=== PATIENT | male | born 1970 | race Caucasian/White ===

== ENCOUNTER 2016-10-07 13:36 | Inpatient (IN) | payer OTHER ==
[2016-10-07 17:24] VITALS: BMI 20.7
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
[2016-10-07] MEDS ORDERED: ACETAMINOPHEN 325 MG TABLET (FP) PO PRN (19:01)
[2016-10-07] MEDS ORDERED: MENTHOL/PHENOL 1 EACH UD MM PRN (19:01)
[2016-10-07] MEDS ORDERED: MAGNESIUM HYDROX 2400MG/30ML ORAL SUSPENSION 30 ML CUP PO PRN (19:01)
[2016-10-07] MEDS ORDERED: MAGNESIUM CITRATE 300 ML BOTTLE PO PRN (19:01)
[2016-10-07] MEDS ORDERED: P-EPHED 60MG/TRIPROLIDI 2.5MG TABLET PO PRN (19:01)
[2016-10-07] MEDS ORDERED: guaiFENesin/D-METHORPHAN HB 10 ML UNIT-DOSE CUPS PO PRN (19:01)
[2016-10-07] MEDS ORDERED: LOPERAMIDE HCL 2 MG CAPSULE PO PRN (19:01)
[2016-10-07] MEDS ORDERED: MAG HYDROX/AL HYDROX/SIMETH 30 ML UNIT-DOSE CUP PO PRN (19:01)
[2016-10-07] MEDS ORDERED: IBUPROFEN 400 MG TABLET (FP) PO PRN (19:01)
[2016-10-07] MEDS ORDERED: hydrOXYzine PAMOATE 50 MG CAPSULE (FP) PO PRN (19:01)
[2016-10-07] MEDS ORDERED: chlordiazePOXIDE HCL 25 MG CAPSULE PO PRN (19:01)
[2016-10-07] MEDS: chlordiazePOXIDE HCL 25 MG CAPSULE PO SCH (22:06)
[2016-10-07] MEDS: diphenhydrAMINE HCL 50 MG CAPSULE PO PRN (22:07)
[2016-10-07] MEDS: THIAMINE HCL 100 MG TABLET (FP) PO SCH (22:07)
[2016-10-07 23:23] LABS: URINE APPEARANCE CLEAR; URINE BILIRUBIN NEGATIVE (NEGATIVE); URINE BLOOD NEGATIVE (NEGATIVE); URINE COLOR STRAW; URINE GLUCOSE (UA) NEGATIVE (NEGATIVE); URINE KETONE TRACE (NEGATIVE); URINE LEUK ESTERASE NEGATIVE (NEGATIVE); URINE NITRITE NEGATIVE (NEGATIVE); URINE PROTEIN NEGATIVE (NEGATIVE); URINE UROBILINOGEN NEGATIVE E.U./dl (0.2-1.0)
[2016-10-08] MEDS: chlordiazePOXIDE HCL 25 MG CAPSULE PO SCH ×4 (05:14→22:21)
[2016-10-08] MEDS ORDERED: ONDANSETRON *ODT* 4 MG TABLET SL PRN (10:03)
--- NOTE | 2016-10-08 10:03 | PN ---
S CIWA - CIWA Score Nausea/Vomitin-No Nausea/No Vomiting Muscle Tremors: 4-Moderate,w/Arms Extend Anxiety: 3 Agitation: 4-Moderately Restless Paroxysmal Sweats: 3 Orientation: 0-Oriented Tacttile Disturbances: 0-None Auditory Disturbances: 0-None Visual Disturbances: 0-None Headache: 0-None Present CIWA-Ar Total Score: 14 BHS Progress Note (SOAP) Subjective: sweats low appetite interrupted sleep nausea Objective: 10/08/16 10:02 Vital Signs Temperature 97.5 F L 10/08/16 06:51 Pulse Rate 79 10/08/16 06:51 Respiratory Rate 18 10/08/16 06:51 Blood Pressure 110/73 10/08/16 06:51 O2 Sat by Pulse Oximetry (%) Laboratory Tests 10/07/16 23:10 Urine Color Straw Urine Appearance Clear Urine pH 6.0 Ur Specific [place] 1.010 Urine Protein Negative Urine Glucose (UA) Negative Urine Ketones Trace H Urine Blood Negative Urine Nitrite Negative Urine Bilirubin Negative Urine Urobilinogen Negative Ur Leukocyte Esterase Negative labs pending awake/alert ambulating no acute distress Assessment: 10/08/16 10:02 withdrawal sx Plan: continue detox increase fluids labs pending zofran prn
[2016-10-08] MEDS: PRENATAL VITAMINS W/ FOLIC ACID TABLET (FP) PO SCH (10:10)
[2016-10-08 10:27] LABS: MCH 32.3 pg (25.7-33.7); MCHC 32.7 g/dl (32.0-35.9); MEAN CELL VOLUME 98.8 fl (80-96); MEAN PLT VOLUME 7.5 fl (7.5-11.1); PLATELET COUNT 241 K/MM3 (134-434); RDW 13.8 % (11.9-15.9); WHITE BLOOD COUNT 6.3 K/mm3 (4.0-10.0)
[2016-10-08 10:54] LABS: ALBUMIN 4.5 g/dl (3.4-5.0); ANION GAP 10 (8-16); CO2 28 mmol/L (21-32); GLUCOSE,RANDOM 116 mg/dL (74-106); SGOT/AST 54 U/L (15-37); SGPT/ALT 55 U/L (12-78)
[2016-10-08 10:57] LABS: ALK PHOS 67 U/L (45-117); BILIRUBIN,TOTAL 0.4 mg/dL (0.2-1.0); CALCIUM 9.2 mg/dL (8.5-10.1); COCKROFT - GAULT 108.47; CREATININE 0.8 mg/dL (0.7-1.3); TOT PROT 7.7 g/dl (6.4-8.2)
[2016-10-08] MEDS ORDERED: INFLUENZA VACCINE 45 MCG/0.5 ML (MDV 16-17) IM ONE (12:00)
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
[2016-10-08] MEDS: THIAMINE HCL 100 MG TABLET (FP) PO SCH (22:21)
[2016-10-08] MEDS: diphenhydrAMINE HCL 50 MG CAPSULE PO PRN (22:21)
[2016-10-09] MEDS: chlordiazePOXIDE HCL 25 MG CAPSULE PO SCH ×3 (05:13→17:37)
--- NOTE | 2016-10-09 08:27 | EKG ---
Test Reason : Blood Pressure : / mmHG Vent. Rate : 075 BPM Atrial Rate : 075 BPM P-R Int : 162 ms QRS Dur : 092 ms QT Int : 392 ms P-R-T Axes : 085 053 065 degrees QTc Int : 437 ms NORMAL SINUS RHYTHM NORMAL ECG NO PREVIOUS ECGS AVAILABLE Confirmed by SHARIF LAIRD MD ([id number]) on 10/09/2016 8:26:39 AM Referred By: Confirmed By:SHARIF LAIRD MD
[2016-10-09] MEDS: PRENATAL VITAMINS W/ FOLIC ACID TABLET (FP) PO SCH (10:12)
--- NOTE | 2016-10-09 10:29 | PN ---
S CIWA - CIWA Score Nausea/Vomitin Muscle Tremors: 2 Anxiety: 2 Agitation: 2 Paroxysmal Sweats: 3 Orientation: 0-Oriented Tacttile Disturbances: 1-Very Mild Itch/Numbness Auditory Disturbances: 0-None Visual Disturbances: 0-None Headache: 0-None Present CIWA-Ar Total Score: 12 S Progress Note (SOAP) Subjective: interrupted sleep, sweats Objective: 10/09/16 10:27 Vital Signs Temperature 98.2 F 10/09/16 10:20 Pulse Rate 82 10/09/16 10:20 Respiratory Rate 16 10/09/16 10:20 Blood Pressure 96/56 10/09/16 10:20 O2 Sat by Pulse Oximetry (%) Laboratory Tests 10/07/16 10/08/16 10/08/16 23:10 06:00 06:00 WBC 6.3 RBC 4.39 Hgb 14.2 Hct 43.4 MCV 98.8 H MCHC 32.7 RDW 13.8 Plt Count 241 D MPV 7.5 Sodium 139 Potassium 4.6 Chloride 101 Carbon Dioxide 28 Anion Gap 10 BUN 14 Creatinine 0.8 Creat Clearance w eGFR > 60 Random Glucose 116 H Calcium 9.2 Total Bilirubin 0.4 D AST 54 H D ALT 55 D Alkaline Phosphatase 67 D Total Protein 7.7 D Albumin 4.5 D Urine Color Straw Urine Appearance Clear Urine pH 6.0 Ur Specific [place] 1.010 Urine Protein Negative Urine Glucose (UA) Negative Urine Ketones Trace H Urine Blood Negative Urine Nitrite Negative Urine Bilirubin Negative Urine Urobilinogen Negative Ur Leukocyte Esterase Negative RPR Titer 10/08/16 06:00 WBC RBC Hgb Hct MCV MCHC RDW Plt Count MPV Sodium Potassium Chloride Carbon Dioxide Anion Gap BUN Creatinine Creat Clearance w eGFR Random Glucose Calcium Total Bilirubin AST ALT Alkaline Phosphatase Total Protein Albumin Urine Color Urine Appearance Urine pH Ur Specific [place] Urine Protein Urine Glucose (UA) Urine Ketones Urine Blood Urine Nitrite Urine Bilirubin Urine Urobilinogen Ur Leukocyte Esterase RPR Titer Nonreactive pt aox3 in nad , lying in bed Assessment: 10/09/16 10:28 withdrawal sx's Plan: cont. detox increase fluids
[2016-10-09] MEDS: chlordiazePOXIDE 5 MG CAPSULE PO SCH (22:25)
[2016-10-09] MEDS: THIAMINE HCL 100 MG TABLET (FP) PO SCH (22:25)
[2016-10-09] MEDS: diphenhydrAMINE HCL 50 MG CAPSULE PO PRN (22:25)
[2016-10-10] MEDS: chlordiazePOXIDE 5 MG CAPSULE PO SCH ×3 (06:03→17:20)
[2016-10-10] MEDS: PRENATAL VITAMINS W/ FOLIC ACID TABLET (FP) PO SCH (10:12)
--- NOTE | 2016-10-10 10:56 | PN ---
BHS Progress Note (SOAP) Subjective: sweats Objective: 10/10/16 08:45 Vital Signs - 24 hr 10/10/16 10/10/16 10/10/16 09:31 14:20 17:20 Temperature 97.2 F L 97.5 F L 98.2 F Pulse Rate 79 81 80 Respiratory 16 16 18 Rate Blood Pressure 95/70 111/56 108/68 10/10/16 10/11/16 10/11/16 22:05 03:30 06:00 Temperature 97.9 F 97.7 F Pulse Rate 83 79 Respiratory 18 18 18 Rate Blood Pressure 108/67 98/67 awake/alert ambulating no acute distress Assessment: 10/10/16 08:46 withdrawal sx Plan: continue detox d/c in am
[2016-10-10] MEDS: chlordiazePOXIDE HCL 10 MG CAPSULE PO SCH (22:05)
[2016-10-10] MEDS: THIAMINE HCL 100 MG TABLET (FP) PO SCH (22:05)
[2016-10-10] MEDS: diphenhydrAMINE HCL 50 MG CAPSULE PO PRN (22:05)
[2016-10-11] MEDS: diphenhydrAMINE HCL 50 MG CAPSULE PO PRN (00:35)
[2016-10-11] MEDS: chlordiazePOXIDE HCL 10 MG CAPSULE PO SCH (05:50)
[2016-10-11 06:37] VITALS: BP 98/67; PULSE 79; TEMP 97.7
--- NOTE | 2016-10-11 08:20 | PN ---
S Progress Note (SOAP) Subjective: alert,no complaint Objective: 10/11/16 08:19 Vital Signs Temperature 97.7 F 10/11/16 06:00 Pulse Rate 79 10/11/16 06:00 Respiratory Rate 18 10/11/16 06:00 Blood Pressure 98/67 10/11/16 06:00 O2 Sat by Pulse Oximetry (%) Assessment: 10/11/16 08:19 detox completed,no withdrawal symptom Plan: discharge today,follow up with after care program as arrangement
--- NOTE | 2016-10-11 08:26 | DS ---
[facility] Detox Discharge Summary Admission Date: 10/07/16 Discharge Date: 10/11/16 - History Present History: Alcohol Dependence Additional Comments: follow up with after care program as arrangement - Physical Exam Results Vital Signs: Vital Signs Temperature 97.7 F 10/11/16 06:00 Pulse Rate 79 10/11/16 06:00 Respiratory Rate 18 10/11/16 06:00 Blood Pressure 98/67 10/11/16 06:00 O2 Sat by Pulse Oximetry (%) Pertinent Admission Physical Exam Findings: withdrawal symptom - Treatment Hospital Course: Detox Protocol Followed, Detoxed Safely, Responded well, Discharged Condition Good, Rehab Referral Accepted Patient has Accepted [facility] - Medication Discharge Medications: Ambulatory Orders NK [No Known Home Medication] 08/28/15 - Diagnosis (1) Alcohol dependence with uncomplicated withdrawal Current Visit: Yes Status: Acute (2) Weight loss Current Visit: Yes Status: Acute - AMA Did Patient Leave Against Medical Advice: No
[2016-10-11] MEDS: PRENATAL VITAMINS W/ FOLIC ACID TABLET (FP) PO SCH (09:20)
== END 2016-10-11 09:52 | disposition home or self-care (01) | DRG 775 ==
LOC: YASAS 13:36 → Y6N 19:04
PROVIDERS: ADMIT Internal Medicine Addiction Medicine; ATTEND Internal Medicine Addiction Medicine
PROC: HZ2ZZZZ Detoxification Services for Substance Abuse Treatment (ICD-10-PCS; principal; 2016-10-11)
DX: F10.230 Alcohol dependence with withdrawal, uncomplicated (principal); F12.20 Cannabis dependence, uncomplicated; F16.10 Hallucinogen abuse, uncomplicated; R76.11 Nonspecific reaction to tuberculin skin test without active tuberculosis; Z68.20 Body mass index [BMI] 20.0-20.9, adult
CPT/HCPCS: 36415; 71020-TC; 80053; 81003; 85027; 86593; 93005; 93010

== ENCOUNTER 2018-03-20 10:22 | Inpatient (IN) | payer OTHER ==
[2018-03-20 10:36] VITALS: BMI 20.5
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
[2018-03-20] MEDS ORDERED: ACETAMINOPHEN 325 MG TABLET (FP) PO PRN (11:03)
[2018-03-20] MEDS ORDERED: MAG HYDROX/AL HYDROX/SIMETH 30 ML UNIT-DOSE CUP PO PRN (11:03)
[2018-03-20] MEDS ORDERED: chlordiazePOXIDE HCL 25 MG CAPSULE PO PRN (11:03)
[2018-03-20] MEDS ORDERED: LOPERAMIDE HCL 2 MG CAPSULE PO PRN (11:03)
[2018-03-20] MEDS ORDERED: guaiFENesin/D-METHORPHAN HB 10 ML UNIT-DOSE CUPS PO PRN (11:03)
[2018-03-20] MEDS ORDERED: MENTHOL/PHENOL 1 EACH UD MM PRN (11:03)
[2018-03-20] MEDS ORDERED: hydrOXYzine PAMOATE 25 MG CAPSULE (FP) PO PRN (11:03)
[2018-03-20] MEDS ORDERED: IBUPROFEN 400 MG TABLET (FP) PO PRN (11:03)
[2018-03-20] MEDS ORDERED: MAGNESIUM CITRATE 300 ML BOTTLE PO PRN (11:03)
[2018-03-20] MEDS ORDERED: P-EPHED 60MG/TRIPROLIDI 2.5MG TABLET PO PRN (11:03)
[2018-03-20] MEDS ORDERED: MAGNESIUM HYDROX 2400MG/30ML ORAL SUSPENSION 30 ML CUP PO PRN (11:03)
[2018-03-20] MEDS: chlordiazePOXIDE HCL 25 MG CAPSULE PO SCH ×2 (16:44→22:16)
[2018-03-20] MEDS: THIAMINE HCL 100 MG TABLET (FP) PO SCH (22:16)
[2018-03-20] MEDS: MELATONIN 5 MG TABLETS PO PRN (22:17)
[2018-03-21] MEDS: chlordiazePOXIDE HCL 25 MG CAPSULE PO SCH ×4 (05:36→22:45)
[2018-03-21 10:17] LABS: URINE APPEARANCE CLEAR; URINE BILIRUBIN NEGATIVE (<2.0 mg/dL); URINE COLOR STRAW; URINE GLUCOSE (UA) NEGATIVE (NEGATIVE); URINE KETONE NEGATIVE (NEGATIVE); URINE LEUK ESTERASE NEGATIVE (NEGATIVE); URINE NITRITE NEGATIVE (NEGATIVE); URINE PROTEIN NEGATIVE (NEGATIVE); URINE UROBILINOGEN NEGATIVE mg/dL (0.2-1.0)
[2018-03-21 10:18] LABS: HEMATOCRIT 45.5 % (35.4-49); HEMOGLOBIN 14.9 GM/dL (11.7-16.9); MCH 31.6 pg (25.7-33.7); MCHC 32.8 g/dl (32.0-35.9); MEAN CELL VOLUME 96.2 fl (80-96); MEAN PLT VOLUME 7.8 fl (7.5-11.1); PLATELET COUNT 221 K/MM3 (134-434); RBC 4.72 M/mm3 (4.00-5.60); WHITE BLOOD COUNT 6.8 K/mm3 (4.0-10.0)
[2018-03-21] MEDS: PRENATAL VITAMINS W/ FOLIC ACID TABLET (FP) PO SCH (10:25)
[2018-03-21 11:04] LABS: ALBUMIN 3.8 g/dl (3.4-5.0); ALK PHOS 57 U/L (45-117); ANION GAP 7 MMOL/L (8-16); BILIRUBIN,TOTAL 0.7 mg/dL (0.2-1); BLOOD UREA NITROGEN 11 mg/dL (7-18); CALCIUM 8.8 mg/dL (8.5-10.1); CHLORIDE 102 mmol/L (98-107); CO2 29 mmol/L (21-32); CREATININE 0.9 mg/dL (0.55-1.3); GLUCOSE,RANDOM 76 mg/dL (74-106); POTASSIUM 4.3 mmol/L (3.5-5.1); SGOT/AST 44 U/L (15-37); SGPT/ALT 44 U/L (13-61); SODIUM 137 mmol/L (136-145); TOT PROT 7.1 g/dl (6.4-8.2)
[2018-03-21] MEDS ORDERED: FLU VACCINE QUAD 60 MCG/0.5 ML (MDV 18-19) IM ONE (12:00)
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
--- NOTE | 2018-03-21 15:43 | PN ---
[facility] CIWA - CIWA Score Nausea/Vomitin-Mild Nausea/No Vomiting Muscle Tremors: 2 Anxiety: 2 Agitation: 3 Paroxysmal Sweats: 4-Forehead w/Sweat Beads Orientation: 0-Oriented Tacttile Disturbances: 0-None Auditory Disturbances: 0-None Visual Disturbances: 0-None Headache: 0-None Present CIWA-Ar Total Score: 12 S Progress Note (SOAP) Subjective: sweats, chills, interrupted sleep Objective: 03/21/18 15:42 Vital Signs Temperature 96.8 F L 03/21/18 13:25 Pulse Rate 86 03/21/18 13:25 Respiratory Rate 18 03/21/18 13:25 Blood Pressure 105/71 03/21/18 13:25 O2 Sat by Pulse Oximetry (%) Laboratory Last Values WBC 6.8 K/mm3 (4.0-10.0) 03/21/18 06:00 RBC 4.72 M/mm3 (4.00-5.60) 03/21/18 06:00 Hgb 14.9 GM/dL (11.7-16.9) 03/21/18 06:00 Hct 45.5 % (35.4-49) 03/21/18 06:00 MCV 96.2 fl (80-96) H 03/21/18 06:00 MCH 31.6 pg (25.7-33.7) 03/21/18 06:00 MCHC 32.8 g/dl (32.0-35.9) 03/21/18 06:00 RDW 13.0 % (11.9-15.9) 03/21/18 06:00 Plt Count 221 K/MM3 (134-434) 03/21/18 06:00 MPV 7.8 fl (7.5-11.1) D 03/21/18 06:00 Sodium 137 mmol/L (136-145) 03/21/18 06:00 Potassium 4.3 mmol/L (3.5-5.1) 03/21/18 06:00 Chloride 102 mmol/L (98-107) 03/21/18 06:00 Carbon Dioxide 29 mmol/L (21-32) 03/21/18 06:00 Anion Gap 7 MMOL/L (8-16) L 03/21/18 06:00 BUN 11 mg/dL (7-18) 03/21/18 06:00 Creatinine 0.9 mg/dL (0.55-1.3) 03/21/18 06:00 Creat Clearance w eGFR > 60 (>60) 03/21/18 06:00 Random Glucose 76 mg/dL (74-106) 03/21/18 06:00 Calcium 8.8 mg/dL (8.5-10.1) 03/21/18 06:00 Total Bilirubin 0.7 mg/dL (0.2-1) 03/21/18 06:00 AST 44 U/L (15-37) H 03/21/18 06:00 ALT 44 U/L (13-61) 03/21/18 06:00 Alkaline Phosphatase 57 U/L (45-117) 03/21/18 06:00 Total Protein 7.1 g/dl (6.4-8.2) 03/21/18 06:00 Albumin 3.8 g/dl (3.4-5.0) 03/21/18 06:00 Urine Color Straw 03/21/18 08:30 Urine Appearance Clear 03/21/18 08:30 Urine pH 6.0 (5.0-8.0) 03/21/18 08:30 Ur Specific [place] 1.008 (1.010-1.035) L 03/21/18 08:30 Urine Protein Negative (NEGATIVE) 03/21/18 08:30 Urine Glucose (UA) Negative (NEGATIVE) 03/21/18 08:30 Urine Ketones Negative (NEGATIVE) 03/21/18 08:30 Urine Blood Negative (NEGATIVE) 03/21/18 08:30 Urine Nitrite Negative (NEGATIVE) 03/21/18 08:30 Urine Bilirubin Negative (<2.0 mg/dL) 03/21/18 08:30 Urine Urobilinogen Negative mg/dL (0.2-1.0) 03/21/18 08:30 Ur Leukocyte Esterase Negative (NEGATIVE) 03/21/18 08:30 RPR Titer Nonreactive (NONREACTIVE) 03/21/18 06:00 HIV 1&2 Antibody Screen Negative 03/20/18 11:25 HIV P24 Antigen Negative 03/20/18 11:25 labs reviewed d/c acetaminophen Aox3 no distress full ROM ambulating in the unit Assessment: 03/21/18 15:43 withdrawal sx Plan: increase fluids continue detox continue to monitor
--- NOTE | 2018-03-21 17:31 | EKG ---
Test Reason : Blood Pressure : / mmHG Vent. Rate : 068 BPM Atrial Rate : 068 BPM P-R Int : 160 ms QRS Dur : 096 ms QT Int : 392 ms P-R-T Axes : 078 041 062 degrees QTc Int : 416 ms NORMAL SINUS RHYTHM NORMAL ECG WHEN COMPARED WITH ECG OF 06-AUG-2017 19:16, NO SIGNIFICANT CHANGE WAS FOUND BASELINE ARTIFACT Confirmed by JAYSON SHINE, HIRA ([id number]) on 03/21/2018 5:31:12 PM Referred By: Confirmed By:HIRA TYLER MD
[2018-03-21] MEDS: THIAMINE HCL 100 MG TABLET (FP) PO SCH (22:45)
[2018-03-21] MEDS: MELATONIN 5 MG TABLETS PO PRN (22:46)
[2018-03-22] MEDS: chlordiazePOXIDE HCL 25 MG CAPSULE PO SCH ×2 (05:29→10:16)
[2018-03-22] MEDS: PRENATAL VITAMINS W/ FOLIC ACID TABLET (FP) PO SCH (10:16)
--- NOTE | 2018-03-22 13:21 | PN ---
[facility] CIWA - CIWA Score Nausea/Vomitin-Mild Nausea/No Vomiting Muscle Tremors: 3 Anxiety: 2 Agitation: 3 Paroxysmal Sweats: 2 Orientation: 0-Oriented Tacttile Disturbances: 2-Mild Itch/Numbness/Burn Auditory Disturbances: 0-None Visual Disturbances: 0-None Headache: 1-Very Mild CIWA-Ar Total Score: 14 S Progress Note (SOAP) Subjective: Tremors, interrupted sleep Objective: 03/22/18 13:20 Vital Signs - 8 hr 03/22/18 03/22/18 06:45 09:15 Temperature 97.8 F 96.8 F L Pulse Rate 82 93 H Respiratory 18 20 Rate Blood Pressure 99/75 98/71 Laboratory Last Values WBC 6.8 K/mm3 (4.0-10.0) 03/21/18 06:00 RBC 4.72 M/mm3 (4.00-5.60) 03/21/18 06:00 Hgb 14.9 GM/dL (11.7-16.9) 03/21/18 06:00 Hct 45.5 % (35.4-49) 03/21/18 06:00 MCV 96.2 fl (80-96) H 03/21/18 06:00 MCH 31.6 pg (25.7-33.7) 03/21/18 06:00 MCHC 32.8 g/dl (32.0-35.9) 03/21/18 06:00 RDW 13.0 % (11.9-15.9) 03/21/18 06:00 Plt Count 221 K/MM3 (134-434) 03/21/18 06:00 MPV 7.8 fl (7.5-11.1) D 03/21/18 06:00 Sodium 137 mmol/L (136-145) 03/21/18 06:00 Potassium 4.3 mmol/L (3.5-5.1) 03/21/18 06:00 Chloride 102 mmol/L (98-107) 03/21/18 06:00 Carbon Dioxide 29 mmol/L (21-32) 03/21/18 06:00 Anion Gap 7 MMOL/L (8-16) L 03/21/18 06:00 BUN 11 mg/dL (7-18) 03/21/18 06:00 Creatinine 0.9 mg/dL (0.55-1.3) 03/21/18 06:00 Creat Clearance w eGFR > 60 (>60) 03/21/18 06:00 Random Glucose 76 mg/dL (74-106) 03/21/18 06:00 Calcium 8.8 mg/dL (8.5-10.1) 03/21/18 06:00 Total Bilirubin 0.7 mg/dL (0.2-1) 03/21/18 06:00 AST 44 U/L (15-37) H 03/21/18 06:00 ALT 44 U/L (13-61) 03/21/18 06:00 Alkaline Phosphatase 57 U/L (45-117) 03/21/18 06:00 Total Protein 7.1 g/dl (6.4-8.2) 03/21/18 06:00 Albumin 3.8 g/dl (3.4-5.0) 03/21/18 06:00 Urine Color Straw 03/21/18 08:30 Urine Appearance Clear 03/21/18 08:30 Urine pH 6.0 (5.0-8.0) 03/21/18 08:30 Ur Specific [place] 1.008 (1.010-1.035) L 03/21/18 08:30 Urine Protein Negative (NEGATIVE) 03/21/18 08:30 Urine Glucose (UA) Negative (NEGATIVE) 03/21/18 08:30 Urine Ketones Negative (NEGATIVE) 03/21/18 08:30 Urine Blood Negative (NEGATIVE) 03/21/18 08:30 Urine Nitrite Negative (NEGATIVE) 03/21/18 08:30 Urine Bilirubin Negative (<2.0 mg/dL) 03/21/18 08:30 Urine Urobilinogen Negative mg/dL (0.2-1.0) 03/21/18 08:30 Ur Leukocyte Esterase Negative (NEGATIVE) 03/21/18 08:30 RPR Titer Nonreactive (NONREACTIVE) 03/21/18 06:00 HIV 1&2 Antibody Screen Negative 03/20/18 11:25 HIV P24 Antigen Negative 03/20/18 11:25 Labs noted Assessment: 03/22/18 13:20 Withdrawal sx Plan: Continue detox
[2018-03-22] MEDS: chlordiazePOXIDE 5 MG CAPSULE PO SCH ×2 (17:46→22:44)
[2018-03-22] MEDS: THIAMINE HCL 100 MG TABLET (FP) PO SCH (22:44)
[2018-03-22] MEDS: MELATONIN 5 MG TABLETS PO PRN (22:45)
[2018-03-23] MEDS: chlordiazePOXIDE 5 MG CAPSULE PO SCH ×2 (05:45→10:21)
[2018-03-23] MEDS: PRENATAL VITAMINS W/ FOLIC ACID TABLET (FP) PO SCH (10:21)
--- NOTE | 2018-03-23 17:03 | PN ---
[facility] Progress Note (SOAP) Subjective: shakes' interrupted sleep sweats Objective: 03/23/18 17:02 A & O x 3 Not in acute distress Vital Signs Temperature 97.2 F L 03/23/18 13:20 Pulse Rate 83 03/23/18 13:20 Respiratory Rate 18 03/23/18 13:20 Blood Pressure 102/69 03/23/18 13:20 O2 Sat by Pulse Oximetry (%) Assessment: 03/23/18 17:02 withdrawal sx Plan: continue detox
[2018-03-23] MEDS: chlordiazePOXIDE HCL 10 MG CAPSULE PO SCH ×2 (17:05→22:13)
[2018-03-23] MEDS: THIAMINE HCL 100 MG TABLET (FP) PO SCH (22:13)
[2018-03-23] MEDS: MELATONIN 5 MG TABLETS PO PRN (22:14)
[2018-03-24] MEDS: chlordiazePOXIDE HCL 10 MG CAPSULE PO SCH (05:25)
[2018-03-24 09:27] VITALS: BP 110/79; PULSE 87; TEMP 96.8
[2018-03-24] MEDS: PRENATAL VITAMINS W/ FOLIC ACID TABLET (FP) PO SCH (09:40)
--- NOTE | 2018-03-24 11:20 | DS ---
[facility] Detox Discharge Summary Admission Date: 03/20/18 Discharge Date: 03/24/18 - History Present History: Alcohol Dependence Pertinent Past History: PPD Positive - Physical Exam Results Vital Signs: Vital Signs Temperature 96.8 F L 03/24/18 09:26 Pulse Rate 87 03/24/18 09:26 Respiratory Rate 18 03/24/18 09:26 Blood Pressure 110/79 03/24/18 09:26 O2 Sat by Pulse Oximetry (%) Pertinent Admission Physical Exam Findings: Withdrawal sxs Laboratory Tests 03/20/18 03/21/18 03/21/18 11:25 06:00 06:00 WBC 6.8 RBC 4.72 Hgb 14.9 Hct 45.5 MCV 96.2 H MCH 31.6 MCHC 32.8 RDW 13.0 Plt Count 221 MPV 7.8 D Sodium 137 Potassium 4.3 Chloride 102 Carbon Dioxide 29 Anion Gap 7 L BUN 11 Creatinine 0.9 Creat Clearance w eGFR > 60 Random Glucose 76 Calcium 8.8 Total Bilirubin 0.7 AST 44 H ALT 44 Alkaline Phosphatase 57 Total Protein 7.1 Albumin 3.8 Urine Color Urine Appearance Urine pH Ur Specific [place] Urine Protein Urine Glucose (UA) Urine Ketones Urine Blood Urine Nitrite Urine Bilirubin Urine Urobilinogen Ur Leukocyte Esterase RPR Titer HIV 1&2 Antibody Screen Negative HIV P24 Antigen Negative 03/21/18 03/21/18 06:00 08:30 WBC RBC Hgb Hct MCV MCH MCHC RDW Plt Count MPV Sodium Potassium Chloride Carbon Dioxide Anion Gap BUN Creatinine Creat Clearance w eGFR Random Glucose Calcium Total Bilirubin AST ALT Alkaline Phosphatase Total Protein Albumin Urine Color Straw Urine Appearance Clear Urine pH 6.0 Ur Specific [place] 1.008 L Urine Protein Negative Urine Glucose (UA) Negative Urine Ketones Negative Urine Blood Negative Urine Nitrite Negative Urine Bilirubin Negative Urine Urobilinogen Negative Ur Leukocyte Esterase Negative RPR Titer Nonreactive HIV 1&2 Antibody Screen HIV P24 Antigen Labs reviewed - Treatment Hospital Course: Detox Protocol Followed, Detoxed Safely, Responded well, Discharged Condition Good - Medication Discharge Medications: Ambulatory Orders NK [No Known Home Medication] 08/28/15 - Diagnosis (1) Depression (emotion) Current Visit: Yes Status: Chronic (2) Alcohol dependence with uncomplicated withdrawal Current Visit: Yes Status: Acute (3) Insomnia secondary to depression with anxiety Current Visit: Yes Status: Acute (4) Positive PPD Current Visit: Yes Status: Chronic - AMA Did Patient Leave Against Medical Advice: No (F/U with your PCP within 1-2 weeks )
== END 2018-03-24 10:00 | disposition home or self-care (01) | DRG 774 ==
LOC: YASAS 10:22 → Y3N 10:57
PROC: HZ2ZZZZ Detoxification Services for Substance Abuse Treatment (ICD-10-PCS; principal; 2018-03-20)
DX: F10.230 Alcohol dependence with withdrawal, uncomplicated (principal); F14.20 Cocaine dependence, uncomplicated; F12.20 Cannabis dependence, uncomplicated; F32.9 Major depressive disorder, single episode, unspecified; R76.11 Nonspecific reaction to tuberculin skin test without active tuberculosis; Z87.891 Personal history of nicotine dependence; Z88.0 Allergy status to penicillin; Z87.898 Personal history of other specified conditions; Z91.5 Personal history of self-harm
CPT/HCPCS: 36415; 71045-TC-FY; 80053; 81003; 85027; 86593; 87389; 90688; 93005; 93010; G0008

== ENCOUNTER 2018-06-12 11:30 | Inpatient (IN) | payer OTHER ==
[2018-06-12 12:00] VITALS: BMI 22.5
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
[2018-06-12] MEDS ORDERED: P-EPHED 60MG/TRIPROLIDI 2.5MG TABLET PO PRN (13:08)
[2018-06-12] MEDS ORDERED: IBUPROFEN 400 MG TABLET (FP) PO PRN (13:08)
[2018-06-12] MEDS ORDERED: MAG HYDROX/AL HYDROX/SIMETH 30 ML UNIT-DOSE CUP PO PRN (13:08)
[2018-06-12] MEDS ORDERED: MENTHOL/PHENOL 1 EACH UD MM PRN (13:08)
[2018-06-12] MEDS ORDERED: LOPERAMIDE HCL 2 MG CAPSULE PO PRN (13:08)
[2018-06-12] MEDS ORDERED: ACETAMINOPHEN 325 MG TABLET (FP) PO PRN (13:08)
[2018-06-12] MEDS ORDERED: MAGNESIUM CITRATE 300 ML BOTTLE PO PRN (13:08)
[2018-06-12] MEDS ORDERED: hydrOXYzine PAMOATE 25 MG CAPSULE (FP) PO PRN (13:08)
[2018-06-12] MEDS ORDERED: guaiFENesin/D-METHORPHAN HB 10 ML UNIT-DOSE CUPS PO PRN (13:08)
[2018-06-12] MEDS ORDERED: MAGNESIUM HYDROX 2400MG/30ML ORAL SUSPENSION 30 ML CUP PO PRN (13:08)
[2018-06-12] MEDS ORDERED: chlordiazePOXIDE HCL 25 MG CAPSULE PO PRN (13:08)
[2018-06-12] MEDS: chlordiazePOXIDE HCL 25 MG CAPSULE PO SCH ×2 (17:48→22:10)
--- NOTE | 2018-06-12 18:58 | EKG ---
Test Reason : Blood Pressure : / mmHG Vent. Rate : 082 BPM Atrial Rate : 082 BPM P-R Int : 152 ms QRS Dur : 090 ms QT Int : 360 ms P-R-T Axes : 083 029 050 degrees QTc Int : 420 ms NORMAL SINUS RHYTHM NORMAL ECG WHEN COMPARED WITH ECG OF 20-MAR-2018 11:56, NO SIGNIFICANT CHANGE WAS FOUND Confirmed by MIGUELITO GERARDO MD ([id number]) on 06/12/2018 6:58:01 PM Referred By: Confirmed By:MIGUELITO GERARDO MD
[2018-06-12] MEDS: THIAMINE HCL 100 MG TABLET (FP) PO SCH (22:10)
[2018-06-12] MEDS: MELATONIN 5 MG TABLETS PO PRN (22:11)
[2018-06-13] MEDS: chlordiazePOXIDE HCL 25 MG CAPSULE PO SCH ×4 (05:12→22:25)
--- NOTE | 2018-06-13 10:24 | PN ---
[facility] CIWA - CIWA Score Nausea/Vomitin-Mild Nausea/No Vomiting Muscle Tremors: 3 Anxiety: 3 Agitation: 3 Paroxysmal Sweats: 2 Orientation: 0-Oriented Tacttile Disturbances: 0-None Auditory Disturbances: 0-None Visual Disturbances: 0-None Headache: 0-None Present CIWA-Ar Total Score: 12 S Progress Note (SOAP) Subjective: PATIENT C/O SHAKES, RESTLESSNESS, CHILLS/SWEATING AND ANXIETY Objective: 06/13/18 10:22 Vital Signs Temperature 97.7 F 06/13/18 09:27 Pulse Rate 90 06/13/18 09:27 Respiratory Rate 18 06/13/18 09:27 Blood Pressure 91/55 L 06/13/18 09:27 O2 Sat by Pulse Oximetry (%) PE: SKIN WARM, +FACIAL MOISTURE ALERT AND ORIENTED X 3 EXT FULL ROM, + TREMORS AMB AD RANDY +RESTLESSNESS Assessment: 06/13/18 10:23 WITHDRAWAL SX Plan: CONTINUE DETOX ENCOURAGE ORAL FLUIDS CONTINUE TO MONITOR LABS PENDING
[2018-06-13] MEDS: PRENATAL VITAMINS W/ FOLIC ACID TABLET (FP) PO SCH (10:27)
[2018-06-13 11:15] LABS: HEMATOCRIT 45.1 % (35.4-49); HEMOGLOBIN 14.6 GM/dL (11.7-16.9); MCH 31.2 pg (25.7-33.7); MCHC 32.3 g/dl (32.0-35.9); MEAN CELL VOLUME 96.7 fl (80-96); MEAN PLT VOLUME 7.7 fl (7.5-11.1); PLATELET COUNT 204 K/MM3 (134-434); RBC 4.67 M/mm3 (4.00-5.60); WHITE BLOOD COUNT 5.4 K/mm3 (4.0-10.0)
[2018-06-13 11:43] LABS: ALBUMIN 4.1 g/dl (3.4-5.0); ALK PHOS 61 U/L (45-117); ANION GAP 7 MMOL/L (8-16); BILIRUBIN,TOTAL 0.6 mg/dL (0.2-1); BLOOD UREA NITROGEN 10 mg/dL (7-18); CALCIUM 8.9 mg/dL (8.5-10.1); CHLORIDE 101 mmol/L (98-107); CO2 30 mmol/L (21-32); CREATININE 0.9 mg/dL (0.55-1.3); GLUCOSE,RANDOM 114 mg/dL (74-106); POTASSIUM 4.7 mmol/L (3.5-5.1); SGOT/AST 35 U/L (15-37); SGPT/ALT 34 U/L (13-61); SODIUM 138 mmol/L (136-145); TOT PROT 7.3 g/dl (6.4-8.2)
[2018-06-13] MEDS: THIAMINE HCL 100 MG TABLET (FP) PO SCH (22:25)
[2018-06-13] MEDS: MELATONIN 5 MG TABLETS PO PRN (22:26)
[2018-06-14] MEDS: chlordiazePOXIDE HCL 25 MG CAPSULE PO SCH ×2 (05:43→10:20)
[2018-06-14] MEDS: PRENATAL VITAMINS W/ FOLIC ACID TABLET (FP) PO SCH (10:19)
--- NOTE | 2018-06-14 10:19 | PN ---
[facility] CIWA - CIWA Score Nausea/Vomitin-No Nausea/No Vomiting Muscle Tremors: 3 Anxiety: 2 Agitation: 2 Paroxysmal Sweats: 1-Minimal Palms Moist Orientation: 0-Oriented Tacttile Disturbances: 0-None Auditory Disturbances: 0-None Visual Disturbances: 0-None Headache: 2-Mild CIWA-Ar Total Score: 10 S Progress Note (SOAP) Subjective: mild tremor and sweat otherwise feeling better Objective: 06/14/18 10:22 Vital Signs Temperature 97.7 F 06/14/18 09:28 Pulse Rate 69 06/14/18 09:28 Respiratory Rate 18 06/14/18 09:28 Blood Pressure 100/54 L 06/14/18 09:28 O2 Sat by Pulse Oximetry (%) Laboratory Last Values WBC 5.4 K/mm3 (4.0-10.0) 06/13/18 05:45 RBC 4.67 M/mm3 (4.00-5.60) 06/13/18 05:45 Hgb 14.6 GM/dL (11.7-16.9) 06/13/18 05:45 Hct 45.1 % (35.4-49) 06/13/18 05:45 MCV 96.7 fl (80-96) H 06/13/18 05:45 MCH 31.2 pg (25.7-33.7) 06/13/18 05:45 MCHC 32.3 g/dl (32.0-35.9) 06/13/18 05:45 RDW 14.0 % (11.9-15.9) 06/13/18 05:45 Plt Count 204 K/MM3 (134-434) 06/13/18 05:45 MPV 7.7 fl (7.5-11.1) 06/13/18 05:45 Sodium 138 mmol/L (136-145) 06/13/18 05:45 Potassium 4.7 mmol/L (3.5-5.1) 06/13/18 05:45 Chloride 101 mmol/L (98-107) 06/13/18 05:45 Carbon Dioxide 30 mmol/L (21-32) 06/13/18 05:45 Anion Gap 7 MMOL/L (8-16) L 06/13/18 05:45 BUN 10 mg/dL (7-18) 06/13/18 05:45 Creatinine 0.9 mg/dL (0.55-1.3) 06/13/18 05:45 Creat Clearance w eGFR > 60 (>60) 06/13/18 05:45 Random Glucose 114 mg/dL (74-106) H 06/13/18 05:45 Calcium 8.9 mg/dL (8.5-10.1) 06/13/18 05:45 Total Bilirubin 0.6 mg/dL (0.2-1) 06/13/18 05:45 AST 35 U/L (15-37) 06/13/18 05:45 ALT 34 U/L (13-61) 06/13/18 05:45 Alkaline Phosphatase 61 U/L (45-117) 06/13/18 05:45 Total Protein 7.3 g/dl (6.4-8.2) 06/13/18 05:45 Albumin 4.1 g/dl (3.4-5.0) 06/13/18 05:45 RPR Titer Nonreactive (NONREACTIVE) 06/13/18 05:45 lab noted Assessment: 06/14/18 10:23 withdrawal sx Plan: continue detox
[2018-06-14] MEDS: chlordiazePOXIDE 5 MG CAPSULE PO SCH ×2 (16:59→22:04)
[2018-06-14] MEDS: THIAMINE HCL 100 MG TABLET (FP) PO SCH (22:04)
[2018-06-14] MEDS: MELATONIN 5 MG TABLETS PO PRN (22:05)
[2018-06-15] MEDS: chlordiazePOXIDE 5 MG CAPSULE PO SCH ×2 (05:52→10:19)
[2018-06-15] MEDS: PRENATAL VITAMINS W/ FOLIC ACID TABLET (FP) PO SCH (10:19)
--- NOTE | 2018-06-15 10:22 | PN ---
[facility] Progress Note (SOAP) Subjective: feeling much better little sweats Objective: 06/15/18 10:22 Vital Signs Temperature 97.7 F 06/15/18 09:27 Pulse Rate 82 06/15/18 09:27 Respiratory Rate 18 06/15/18 09:27 Blood Pressure 108/78 06/15/18 09:27 O2 Sat by Pulse Oximetry (%) aaox3 ambulating no acute distress Assessment: 06/15/18 10:22 withdrawal sx Plan: continue detox increase fluids d/c in am
[2018-06-15 13:40] VITALS: BP 90/64; PULSE 90; TEMP 98.2
--- NOTE | 2018-06-15 15:44 | PN ---
[facility] Progress Note Note: pt is showing no s/s of withdrawal and is being d/c today.
--- NOTE | 2018-06-15 15:47 | DS ---
[facility] Detox Discharge Summary Admission Date: 06/12/18 Discharge Date: 06/15/18 - History Present History: Alcohol Dependence, Cannabis Dependence, Cocaine Dependence, Pcp Dependence - Physical Exam Results Vital Signs: Vital Signs Temperature 98.2 F 06/15/18 13:39 Pulse Rate 90 06/15/18 13:39 Respiratory Rate 14 06/15/18 13:39 Blood Pressure 90/64 06/15/18 13:39 O2 Sat by Pulse Oximetry (%) - Treatment Hospital Course: Detox Protocol Followed, Detoxed Safely, Responded well, Discharged Condition Good, Rehab Referral Accepted - Medication Discharge Medications: Ambulatory Orders NK [No Known Home Medication] 08/28/15 - Diagnosis (1) Alcohol dependence with uncomplicated withdrawal Current Visit: Yes Status: Chronic (2) Cannabis dependence, uncomplicated Current Visit: Yes Status: Chronic (3) Marijuana dependence Current Visit: Yes Status: Chronic (4) Anxious mood Current Visit: No Status: Acute (5) Drug-induced mood disorder Current Visit: No Status: Acute (6) Insomnia secondary to depression with anxiety Current Visit: No Status: Acute (7) Pneumothorax on left Current Visit: No Status: Acute (8) Cocaine dependence Current Visit: No Status: Chronic Qualifiers: Substance use status: uncomplicated Qualified Code(s): F14.20 - Cocaine dependence, uncomplicated (9) Depression (emotion) Current Visit: No Status: Chronic (10) Drug-induced mood disorder Current Visit: No Status: Chronic (11) Heart murmur Current Visit: No Status: Chronic (12) Insomnia Current Visit: No Status: Chronic (13) Positive PPD Current Visit: No Status: Chronic (14) Weight loss Current Visit: No Status: Chronic
[2018-06-15] MEDS ORDERED: chlordiazePOXIDE HCL 10 MG CAPSULE PO SCH (17:00)
== END 2018-06-15 15:52 | disposition home or self-care (01) | DRG 774 ==
LOC: YASAS 11:30 → Y6N 13:23
PROC: HZ2ZZZZ Detoxification Services for Substance Abuse Treatment (ICD-10-PCS; principal; 2018-06-12)
DX: F10.230 Alcohol dependence with withdrawal, uncomplicated (principal); F14.20 Cocaine dependence, uncomplicated; F12.20 Cannabis dependence, uncomplicated; F41.9 Anxiety disorder, unspecified; F19.24 Other psychoactive substance dependence with psychoactive substance-induced mood disorder; F32.9 Major depressive disorder, single episode, unspecified; G47.00 Insomnia, unspecified; R01.1 Cardiac murmur, unspecified; R76.11 Nonspecific reaction to tuberculin skin test without active tuberculosis; Z87.891 Personal history of nicotine dependence; Z88.0 Allergy status to penicillin; Z91.5 Personal history of self-harm
CPT/HCPCS: 36415; 80053; 85027; 86593; 93005; 93010

== ENCOUNTER 2018-10-05 13:28 | Inpatient (IN) | payer BC ==
[2018-10-05 18:58] VITALS: BMI 21.2
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
[2018-10-05] MEDS ORDERED: MENTHOL/PHENOL 1 EACH UD MM PRN (20:46)
[2018-10-05] MEDS ORDERED: MAG HYDROX/AL HYDROX/SIMETH 30 ML UNIT-DOSE CUP PO PRN (20:46)
[2018-10-05] MEDS ORDERED: BISMUTH SUBSALICYLATE 524 MG/30 ML UD PO PRN (20:46)
[2018-10-05] MEDS ORDERED: ACETAMINOPHEN 325 MG TABLET (FP) PO PRN ×2 (20:46)
[2018-10-05] MEDS ORDERED: chlordiazePOXIDE HCL 25 MG CAPSULE PO PRN (20:46)
[2018-10-05] MEDS ORDERED: IBUPROFEN 400 MG TABLET (FP) PO PRN (20:46)
[2018-10-05] MEDS ORDERED: hydrOXYzine PAMOATE 25 MG CAPSULE (FP) PO PRN (20:46)
[2018-10-05] MEDS ORDERED: MAGNESIUM CITRATE 300 ML BOTTLE PO PRN (20:46)
[2018-10-05] MEDS ORDERED: METHOCARBAMOL 500 MG TABLET PO PRN (20:46)
[2018-10-05] MEDS ORDERED: MAGNESIUM HYDROX 2400MG/30ML ORAL SUSPENSION 30 ML CUP PO PRN (20:46)
[2018-10-05] MEDS: THIAMINE HCL 100 MG TABLET (FP) PO SCH (21:52)
[2018-10-05] MEDS: MELATONIN 5 MG TABLETS PO PRN (21:54)
[2018-10-05] MEDS: chlordiazePOXIDE HCL 25 MG CAPSULE PO SCH (22:00)
[2018-10-06] MEDS: chlordiazePOXIDE HCL 25 MG CAPSULE PO SCH ×4 (05:21→22:06)
[2018-10-06 10:05] LABS: HEMOGLOBIN 14.1 GM/dL (11.7-16.9); MCH 32.1 pg (25.7-33.7); MCHC 33.5 g/dl (32.0-35.9); MEAN CELL VOLUME 95.9 fl (80-96); MEAN PLT VOLUME 7.2 fl (7.5-11.1); PLATELET COUNT 201 K/MM3 (134-434); RBC 4.38 M/mm3 (4.00-5.60); RDW 14.5 % (11.9-15.9); WHITE BLOOD COUNT 6.4 K/mm3 (4.0-10.0)
[2018-10-06 10:16] LABS: ALBUMIN 3.6 g/dl (3.4-5.0); ALK PHOS 60 U/L (45-117); ANION GAP 6 MMOL/L (8-16); BILIRUBIN,TOTAL 0.8 mg/dL (0.2-1); BLOOD UREA NITROGEN 9 mg/dL (7-18); CALCIUM 8.9 mg/dL (8.5-10.1); CHLORIDE 104 mmol/L (98-107); CO2 29 mmol/L (21-32); CREATININE 0.9 mg/dL (0.55-1.3); GLUCOSE,RANDOM 91 mg/dL (74-106); POTASSIUM 4.3 mmol/L (3.5-5.1); SGOT/AST 44 U/L (15-37); SGPT/ALT 37 U/L (13-61); SODIUM 140 mmol/L (136-145); TOT PROT 6.3 g/dl (6.4-8.2)
[2018-10-06] MEDS: PRENATAL VITAMINS W/ FOLIC ACID TABLET (FP) PO SCH (10:31)
--- NOTE | 2018-10-06 12:39 | EKG ---
Test Reason : Blood Pressure : / mmHG Vent. Rate : 073 BPM Atrial Rate : 073 BPM P-R Int : 160 ms QRS Dur : 096 ms QT Int : 392 ms P-R-T Axes : 077 039 059 degrees QTc Int : 431 ms NORMAL SINUS RHYTHM NORMAL ECG Confirmed by MD BRAYAN, EVE ([id number]) on 10/06/2018 12:39:22 PM Referred By: OPAL GRAY Confirmed By:EVE SCHMIDT MD
--- NOTE | 2018-10-06 15:11 | PN ---
S CIWA - CIWA Score Nausea/Vomitin Muscle Tremors: 4-Moderate,w/Arms Extend Anxiety: 3 Agitation: 1-Slight > Activity Paroxysmal Sweats: No Perspiration Orientation: 0-Oriented Tacttile Disturbances: 2-Mild Itch/Numbness/Burn Auditory Disturbances: 0-None Visual Disturbances: 0-None Headache: 3-Moderate CIWA-Ar Total Score: 16 BHS Progress Note (SOAP) Subjective: Anxious, Tremors, Nausea, H/A. Objective: PATIENT A & O X 3, OBSERVED AMBULATING ON UNIT UNASSISTED. IN NO ACUTE DISTRESS. 10/06/18 15:10 Vital Signs Temperature 97.4 F L 10/06/18 13:07 Pulse Rate 89 10/06/18 13:07 Respiratory Rate 18 10/06/18 13:07 Blood Pressure 103/71 10/06/18 13:07 O2 Sat by Pulse Oximetry (%) Laboratory Tests 10/06/18 10/06/18 10/06/18 07:00 07:00 07:00 WBC 6.4 RBC 4.38 Hgb 14.1 Hct 42.0 MCV 95.9 MCH 32.1 MCHC 33.5 RDW 14.5 Plt Count 201 MPV 7.2 L Sodium 140 Potassium 4.3 Chloride 104 Carbon Dioxide 29 Anion Gap 6 L BUN 9 Creatinine 0.9 Creat Clearance w eGFR 90.45 Random Glucose 91 Calcium 8.9 Total Bilirubin 0.8 AST 44 H ALT 37 Alkaline Phosphatase 60 Total Protein 6.3 L Albumin 3.6 RPR Titer Nonreactive LABS NOTED. Assessment: 10/06/18 15:10 WITHDRAWAL SYMPTOMS. Plan: CONTINUE DETOX. INCREASE DAILY PO FLUID / WATER INTAKE.
[2018-10-06] MEDS: THIAMINE HCL 100 MG TABLET (FP) PO SCH (22:05)
[2018-10-06] MEDS: MELATONIN 5 MG TABLETS PO PRN (22:06)
[2018-10-07] MEDS: chlordiazePOXIDE HCL 25 MG CAPSULE PO SCH ×3 (05:19→17:14)
--- NOTE | 2018-10-07 10:23 | PN ---
S CIWA - CIWA Score Nausea/Vomitin-Mild Nausea/No Vomiting Muscle Tremors: 3 Anxiety: 1-Mildly Anxious Agitation: 3 Paroxysmal Sweats: 1-Minimal Palms Moist Orientation: 2-Disoriented Date<2 days Tacttile Disturbances: 0-None Auditory Disturbances: 0-None Visual Disturbances: 0-None Headache: 2-Mild CIWA-Ar Total Score: 13 BHS Progress Note (SOAP) Subjective: report doing well with librium detox protocol Objective: 10/07/18 10:23 Vital Signs Temperature 96.7 F L 10/07/18 09:29 Pulse Rate 75 10/07/18 09:29 Respiratory Rate 18 10/07/18 09:29 Blood Pressure 106/73 10/07/18 09:29 O2 Sat by Pulse Oximetry (%) Laboratory Last Values WBC 6.4 K/mm3 (4.0-10.0) 10/06/18 07:00 RBC 4.38 M/mm3 (4.00-5.60) 10/06/18 07:00 Hgb 14.1 GM/dL (11.7-16.9) 10/06/18 07:00 Hct 42.0 % (35.4-49) 10/06/18 07:00 MCV 95.9 fl (80-96) 10/06/18 07:00 MCH 32.1 pg (25.7-33.7) 10/06/18 07:00 MCHC 33.5 g/dl (32.0-35.9) 10/06/18 07:00 RDW 14.5 % (11.9-15.9) 10/06/18 07:00 Plt Count 201 K/MM3 (134-434) 10/06/18 07:00 MPV 7.2 fl (7.5-11.1) L 10/06/18 07:00 Sodium 140 mmol/L (136-145) 10/06/18 07:00 Potassium 4.3 mmol/L (3.5-5.1) 10/06/18 07:00 Chloride 104 mmol/L (98-107) 10/06/18 07:00 Carbon Dioxide 29 mmol/L (21-32) 10/06/18 07:00 Anion Gap 6 MMOL/L (8-16) L 10/06/18 07:00 BUN 9 mg/dL (7-18) 10/06/18 07:00 Creatinine 0.9 mg/dL (0.55-1.3) 10/06/18 07:00 Creat Clearance w eGFR 90.45 (>60) 10/06/18 07:00 Random Glucose 91 mg/dL (74-106) 10/06/18 07:00 Calcium 8.9 mg/dL (8.5-10.1) 10/06/18 07:00 Total Bilirubin 0.8 mg/dL (0.2-1) 10/06/18 07:00 AST 44 U/L (15-37) H 10/06/18 07:00 ALT 37 U/L (13-61) 10/06/18 07:00 Alkaline Phosphatase 60 U/L (45-117) 10/06/18 07:00 Total Protein 6.3 g/dl (6.4-8.2) L 10/06/18 07:00 Albumin 3.6 g/dl (3.4-5.0) 10/06/18 07:00 RPR Titer Nonreactive (NONREACTIVE) 10/06/18 07:00 lab noted Assessment: 10/07/18 10:23 withdrawal sx Plan: continue detox
[2018-10-07] MEDS: PRENATAL VITAMINS W/ FOLIC ACID TABLET (FP) PO SCH (10:25)
[2018-10-07] MEDS: MELATONIN 5 MG TABLETS PO PRN (22:05)
[2018-10-07] MEDS: THIAMINE HCL 100 MG TABLET (FP) PO SCH (22:05)
[2018-10-07] MEDS: chlordiazePOXIDE HCL 10 MG CAPSULE PO SCH (22:05)
[2018-10-07] MEDS ORDERED: chlordiazePOXIDE HCL 10 MG CAPSULE PO PRN (23:00)
[2018-10-08] MEDS: chlordiazePOXIDE HCL 10 MG CAPSULE PO SCH ×3 (05:16→17:27)
[2018-10-08] MEDS: PRENATAL VITAMINS W/ FOLIC ACID TABLET (FP) PO SCH (10:26)
--- NOTE | 2018-10-08 13:34 | PN ---
[facility] CIWA - CIWA Score Nausea/Vomitin-Mild Nausea/No Vomiting Muscle Tremors: 1-None Visible, but Andrews Anxiety: 1-Mildly Anxious Agitation: 1-Slight > Activity Paroxysmal Sweats: 1-Minimal Palms Moist Orientation: 1-Uncertain about Date Tacttile Disturbances: 0-None Auditory Disturbances: 0-None Visual Disturbances: 0-None Headache: 1-Very Mild CIWA-Ar Total Score: 7 S Progress Note (SOAP) Subjective: feeling better less tremor well rested Objective: 10/08/18 13:35 Vital Signs Temperature 98.6 F 10/08/18 09:50 Pulse Rate 91 H 10/08/18 09:50 Respiratory Rate 18 10/08/18 09:50 Blood Pressure 100/59 L 10/08/18 09:50 O2 Sat by Pulse Oximetry (%) Laboratory Last Values WBC 6.4 K/mm3 (4.0-10.0) 10/06/18 07:00 RBC 4.38 M/mm3 (4.00-5.60) 10/06/18 07:00 Hgb 14.1 GM/dL (11.7-16.9) 10/06/18 07:00 Hct 42.0 % (35.4-49) 10/06/18 07:00 MCV 95.9 fl (80-96) 10/06/18 07:00 MCH 32.1 pg (25.7-33.7) 10/06/18 07:00 MCHC 33.5 g/dl (32.0-35.9) 10/06/18 07:00 RDW 14.5 % (11.9-15.9) 10/06/18 07:00 Plt Count 201 K/MM3 (134-434) 10/06/18 07:00 MPV 7.2 fl (7.5-11.1) L 10/06/18 07:00 Sodium 140 mmol/L (136-145) 10/06/18 07:00 Potassium 4.3 mmol/L (3.5-5.1) 10/06/18 07:00 Chloride 104 mmol/L (98-107) 10/06/18 07:00 Carbon Dioxide 29 mmol/L (21-32) 10/06/18 07:00 Anion Gap 6 MMOL/L (8-16) L 10/06/18 07:00 BUN 9 mg/dL (7-18) 10/06/18 07:00 Creatinine 0.9 mg/dL (0.55-1.3) 10/06/18 07:00 Creat Clearance w eGFR 90.45 (>60) 10/06/18 07:00 Random Glucose 91 mg/dL (74-106) 10/06/18 07:00 Calcium 8.9 mg/dL (8.5-10.1) 10/06/18 07:00 Total Bilirubin 0.8 mg/dL (0.2-1) 10/06/18 07:00 AST 44 U/L (15-37) H 10/06/18 07:00 ALT 37 U/L (13-61) 10/06/18 07:00 Alkaline Phosphatase 60 U/L (45-117) 10/06/18 07:00 Total Protein 6.3 g/dl (6.4-8.2) L 10/06/18 07:00 Albumin 3.6 g/dl (3.4-5.0) 10/06/18 07:00 RPR Titer Nonreactive (NONREACTIVE) 10/06/18 07:00 lab noted Assessment: 10/08/18 13:36 mild alcohol wtihdrawal sx Plan: continue detox
[2018-10-08] MEDS: THIAMINE HCL 100 MG TABLET (FP) PO SCH (22:21)
[2018-10-08] MEDS: MELATONIN 5 MG TABLETS PO PRN (22:22)
[2018-10-08] MEDS ORDERED: chlordiazePOXIDE HCL 10 MG CAPSULE PO SCH (23:00)
[2018-10-09 09:07] VITALS: BP 99/76; PULSE 95; TEMP 96.3
--- NOTE | 2018-10-09 19:08 | DS ---
[facility] Detox Discharge Summary Admission Date: 10/05/18 Discharge Date: 10/09/18 - History Present History: Alcohol Dependence, Cocaine Dependence Additional Comments: PATIENT REFERRED TO [facility] ([place], [place]) FOR AFTERCARE. PATIENT WAS DISCHARGED FROM DETOX UNIT IN STABLE MEDICAL CONDITION. - Physical Exam Results Vital Signs: Vital Signs Temperature 96.3 F L 10/09/18 09:06 Pulse Rate 95 H 10/09/18 09:06 Respiratory Rate 20 10/09/18 09:06 Blood Pressure 99/76 10/09/18 09:06 O2 Sat by Pulse Oximetry (%) Pertinent Admission Physical Exam Findings: WITHDRAWAL SYMPTOMS. Laboratory Tests 10/06/18 10/06/18 10/06/18 07:00 07:00 07:00 WBC 6.4 RBC 4.38 Hgb 14.1 Hct 42.0 MCV 95.9 MCH 32.1 MCHC 33.5 RDW 14.5 Plt Count 201 MPV 7.2 L Sodium 140 Potassium 4.3 Chloride 104 Carbon Dioxide 29 Anion Gap 6 L BUN 9 Creatinine 0.9 Creat Clearance w eGFR 90.45 Random Glucose 91 Calcium 8.9 Total Bilirubin 0.8 AST 44 H ALT 37 Alkaline Phosphatase 60 Total Protein 6.3 L Albumin 3.6 RPR Titer Nonreactive LABS NOTED. - Treatment Hospital Course: Detox Protocol Followed, Detoxed Safely, Responded well, Discharged Condition Good Patient has Accepted a Rehab Referral to: PATIENT REFERRED TO [facility]. - Medication Discharge Medications: Ambulatory Orders NK [No Known Home Medication] 08/28/15 - Diagnosis (1) Alcohol dependence with uncomplicated withdrawal Status: Acute (2) Cocaine dependence Status: Chronic Qualifiers: Substance use status: uncomplicated Qualified Code(s): F14.20 - Cocaine dependence, uncomplicated - AMA Did Patient Leave Against Medical Advice: No
== END 2018-10-09 09:08 | disposition home or self-care (01) | DRG 774 ==
LOC: YASAS 13:28 → Y3N 20:45
PROVIDERS: ADMIT Surgery; ATTEND Surgery
PROC: HZ2ZZZZ Detoxification Services for Substance Abuse Treatment (ICD-10-PCS; principal; 2018-10-05)
DX: F10.230 Alcohol dependence with withdrawal, uncomplicated (principal); F14.10 Cocaine abuse, uncomplicated; Z88.8 Allergy status to other drugs, medicaments and biological substances; Z91.5 Personal history of self-harm
CPT/HCPCS: 36415; 80053; 85027; 86593; 93005; 93010

== ENCOUNTER 2019-05-31 12:39 | Inpatient (IN) | payer BC ==
[2019-05-31 13:08] VITALS: BMI 25.4
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
[2019-05-31] MEDS ORDERED: MELATONIN 5 MG TABLETS PO PRN (14:51)
[2019-05-31] MEDS ORDERED: MAGNESIUM HYDROX 2400MG/30ML ORAL SUSPENSION 30 ML CUP PO PRN (14:51)
[2019-05-31] MEDS ORDERED: MENTHOL/PHENOL 1 EACH UD MM PRN (14:51)
[2019-05-31] MEDS ORDERED: chlordiazePOXIDE HCL 25 MG CAPSULE PO PRN (14:51)
[2019-05-31] MEDS ORDERED: MAGNESIUM CITRATE 300 ML BOTTLE PO PRN (14:51)
[2019-05-31] MEDS ORDERED: hydrOXYzine PAMOATE 25 MG CAPSULE (FP) PO PRN (14:51)
[2019-05-31] MEDS ORDERED: BISMUTH SUBSALICYLATE 262 MG/15 ML BTL PO PRN (14:51)
[2019-05-31] MEDS ORDERED: ACETAMINOPHEN 325 MG TABLET (FP) PO PRN ×2 (14:51)
[2019-05-31] MEDS ORDERED: METHOCARBAMOL 500 MG TABLET PO PRN (14:51)
[2019-05-31] MEDS ORDERED: IBUPROFEN 400 MG TABLET (FP) PO PRN (14:51)
[2019-05-31] MEDS ORDERED: MAG HYDROX/AL HYDROX/SIMETH 30 ML UNIT-DOSE CUP PO PRN (14:51)
--- NOTE | 2019-05-31 15:17 | PN ---
Teaching Attending Note Name of Resident: Cindy Grant ATTENDING PHYSICIAN STATEMENT I saw and evaluated the patient. I reviewed the resident's note and discussed the case with the resident. I agree with the resident's findings and plan as documented. SUBJECTIVE: this 48 years old male with alcohol,cocaine and marijuana dependence,seeking detox,withdrawal symptom,denied seizure,denied syncope OBJECTIVE: Vital Signs Temperature 96.9 F L 05/31/19 13:27 Pulse Rate 90 05/31/19 13:27 Respiratory Rate 20 05/31/19 13:27 Blood Pressure 110/74 05/31/19 13:27 O2 Sat by Pulse Oximetry (%) withdrawal signs and symptom ASSESSMENT AND PLAN: this 48 years old male with alcohol and cocaine and marijuana dependence seeking detox,inpatient ,medically managed for librium regimen
[2019-05-31 16:45] LABS: HEMATOCRIT 42.5 % (35.4-49); HEMOGLOBIN 14.3 GM/dL (11.7-16.9); MCH 31.3 pg (25.7-33.7); MCHC 33.7 g/dl (32.0-35.9); MEAN CELL VOLUME 93.1 fl (80-96); MEAN PLT VOLUME 7.1 fl (7.5-11.1); PLATELET COUNT 206 K/MM3 (134-434); RBC 4.56 M/mm3 (4.00-5.60); RDW 15.5 % (11.9-15.9); WHITE BLOOD COUNT 7.4 K/mm3 (4.0-10.0)
[2019-05-31 16:56] LABS: ALBUMIN 4.1 g/dl (3.4-5.0); BILIRUBIN,TOTAL 0.3 mg/dL (0.2-1); CALCIUM 8.8 mg/dL (8.5-10.1); POTASSIUM 4.4 mmol/L (3.5-5.1); TOT PROT 7.5 g/dl (6.4-8.2)
[2019-05-31] MEDS: chlordiazePOXIDE HCL 25 MG CAPSULE PO SCH ×2 (17:36→22:10)
[2019-05-31] MEDS ORDERED: THIAMINE HCL 100 MG TABLET (FP) PO SCH (22:00)
[2019-06-01 00:43] LABS: PH,URINE 5.5 (5.0-8.0); URINE APPEARANCE CLEAR; URINE BILIRUBIN NEGATIVE (NEGATIVE); URINE COLOR YELLOW; URINE GLUCOSE (UA) NEGATIVE (NEGATIVE); URINE KETONE NEGATIVE (NEGATIVE); URINE LEUK ESTERASE NEGATIVE (NEGATIVE); URINE NITRITE NEGATIVE (NEGATIVE); URINE PROTEIN NEGATIVE (NEGATIVE); URINE UROBILINOGEN 0.2 mg/dL (0.2-1.0)
[2019-06-01] MEDS: chlordiazePOXIDE HCL 25 MG CAPSULE PO SCH (05:17)
[2019-06-01 09:20] VITALS: BP 90/56; PULSE 78; TEMP 97
[2019-06-01] MEDS ORDERED: PRENATAL VITAMINS W/ FOLIC ACID TABLET (FP) PO SCH (10:00)
--- NOTE | 2019-06-01 14:14 | DS ---
[facility] Detox Discharge Summary Admission Date: 05/31/19 Discharge Date: 06/01/19 - History Present History: Alcohol Dependence Additional Comments: 48 years old male admitted on 05/31/19 for alcohol withdrawal sx management treated with librium detox regimen patient insists to leave the detox unit without apparent reason patient is alert oriented x 3 ambulating steady gait speech clearly coherentlyb - Physical Exam Results Vital Signs: Vital Signs Temperature 97.0 F L 06/01/19 09:19 Pulse Rate 78 06/01/19 09:19 Respiratory Rate 16 06/01/19 09:19 Blood Pressure 90/56 L 06/01/19 09:19 O2 Sat by Pulse Oximetry (%) Pertinent Admission Physical Exam Findings: alcohol withdrawal Laboratory Last Values WBC 7.4 K/mm3 (4.0-10.0) 05/31/19 14:55 RBC 4.56 M/mm3 (4.00-5.60) 05/31/19 14:55 Hgb 14.3 GM/dL (11.7-16.9) 05/31/19 14:55 Hct 42.5 % (35.4-49) 05/31/19 14:55 MCV 93.1 fl (80-96) 05/31/19 14:55 MCH 31.3 pg (25.7-33.7) 05/31/19 14:55 MCHC 33.7 g/dl (32.0-35.9) 05/31/19 14:55 RDW 15.5 % (11.9-15.9) 05/31/19 14:55 Plt Count 206 K/MM3 (134-434) 05/31/19 14:55 MPV 7.1 fl (7.5-11.1) L 05/31/19 14:55 Sodium 138 mmol/L (136-145) 05/31/19 14:55 Potassium 4.4 mmol/L (3.5-5.1) 05/31/19 14:55 Chloride 104 mmol/L (98-107) 05/31/19 14:55 Carbon Dioxide 26 mmol/L (21-32) 05/31/19 14:55 Anion Gap 8 MMOL/L (8-16) 05/31/19 14:55 BUN 12.0 mg/dL (7-18) 05/31/19 14:55 Creatinine 1.0 mg/dL (0.55-1.3) 05/31/19 14:55 Est GFR (CKD-EPI)AfAm 103.42 05/31/19 14:55 Est GFR (CKD-EPI)NonAf 89.23 05/31/19 14:55 Random Glucose 90 mg/dL (74-106) 05/31/19 14:55 Calcium 8.8 mg/dL (8.5-10.1) 05/31/19 14:55 Total Bilirubin 0.3 mg/dL (0.2-1) 05/31/19 14:55 AST 30 U/L (15-37) 05/31/19 14:55 ALT 41 U/L (13-61) 05/31/19 14:55 Alkaline Phosphatase 74 U/L (45-117) 05/31/19 14:55 Total Protein 7.5 g/dl (6.4-8.2) 05/31/19 14:55 Albumin 4.1 g/dl (3.4-5.0) 05/31/19 14:55 Urine Color Yellow 06/01/19 00:35 Urine Appearance Clear 06/01/19 00:35 Urine pH 5.5 (5.0-8.0) 06/01/19 00:35 Ur Specific [place] 1.012 (1.010-1.035) 06/01/19 00:35 Urine Protein Negative (NEGATIVE) 06/01/19 00:35 Urine Glucose (UA) Negative (NEGATIVE) 06/01/19 00:35 Urine Ketones Negative (NEGATIVE) 06/01/19 00:35 Urine Blood Negative (NEGATIVE) 06/01/19 00:35 Urine Nitrite Negative (NEGATIVE) 06/01/19 00:35 Urine Bilirubin Negative (NEGATIVE) 06/01/19 00:35 Urine Urobilinogen 0.2 mg/dL (0.2-1.0) 06/01/19 00:35 Ur Leukocyte Esterase Negative (NEGATIVE) 06/01/19 00:35 RPR Titer Nonreactive (NONREACTIVE) 05/31/19 14:55 HIV 1&2 Antibody Screen Negative 05/31/19 14:55 HIV P24 Antigen Negative 05/31/19 14:55 lab noted - Treatment Hospital Course: Detox Protocol Followed Patient has Accepted a Rehab Referral to: community support approach - Medication Discharge Medications: Ambulatory Orders NK [No Known Home Medication] 08/28/15 - Diagnosis (1) Alcohol dependence with uncomplicated withdrawal Status: Acute (2) Positive PPD Status: Resolved - AMA Did Patient Leave Against Medical Advice: Yes
[2019-06-02] MEDS ORDERED: chlordiazePOXIDE HCL 25 MG CAPSULE PO SCH (05:00)
[2019-06-03] MEDS ORDERED: chlordiazePOXIDE HCL 10 MG CAPSULE PO PRN
[2019-06-03] MEDS ORDERED: chlordiazePOXIDE HCL 10 MG CAPSULE PO SCH (05:00)
[2019-06-04] MEDS ORDERED: chlordiazePOXIDE HCL 10 MG CAPSULE PO SCH (05:00)
[2019-06-05] MEDS ORDERED: chlordiazePOXIDE HCL 10 MG CAPSULE PO ONE (05:00)
== END 2019-06-01 09:33 | disposition left against medical advice (07) | DRG 770 ==
LOC: YASAS 12:39 → Y3N 15:13
PROVIDERS: ADMIT Allergy & Immunology; ATTEND Allergy & Immunology
PROC: HZ2ZZZZ Detoxification Services for Substance Abuse Treatment (ICD-10-PCS; principal; 2019-05-31)
DX: F10.230 Alcohol dependence with withdrawal, uncomplicated (principal); F14.20 Cocaine dependence, uncomplicated; F12.20 Cannabis dependence, uncomplicated; R76.11 Nonspecific reaction to tuberculin skin test without active tuberculosis; Z88.0 Allergy status to penicillin; Z87.891 Personal history of nicotine dependence; Z91.5 Personal history of self-harm
CPT/HCPCS: 36415; 80053; 81003; 85027; 86593; 87389

== ENCOUNTER 2020-02-24 13:10 | Inpatient (IN) | payer BC ==
--- NOTE | 2020-02-24 14:27 | BHS.RME ---
CIWA Nausea/Vomitin Muscle Tremors: 2 Anxiety: 4-Mod. Anxious/Guarded Agitation: 4-Moderately Restless Paroxysmal Sweats: 5 Orientation: 0-Oriented Tacttile Disturbances: 1-Very Mild Itch/Numbness Auditory Disturbances: 0-None Visual Disturbances: 0-None Headache: 1-Very Mild CIWA-Ar Total Score: 20
[2020-02-24 16:33] VITALS: BMI 21.7
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
[2020-02-24] MEDS ORDERED: MAGNESIUM HYDROX 2400MG/30ML ORAL SUSPENSION 30 ML CUP PO PRN (17:33)
[2020-02-24] MEDS ORDERED: NICOTINE POLACRILEX 2 MG GUM BUC PRN (17:33)
[2020-02-24] MEDS ORDERED: ONDANSETRON *ODT* 4 MG TABLET SL PRN (17:33)
[2020-02-24] MEDS ORDERED: IBUPROFEN 400 MG TABLET (FP) PO PRN (17:33)
[2020-02-24] MEDS ORDERED: MAG HYDROX/AL HYDROX/SIMETH 30 ML UNIT-DOSE CUP PO PRN (17:33)
[2020-02-24] MEDS ORDERED: chlordiazePOXIDE HCL 25 MG CAPSULE PO PRN (17:33)
[2020-02-24] MEDS ORDERED: METHOCARBAMOL 500 MG TABLET PO PRN (17:33)
[2020-02-24] MEDS ORDERED: BISMUTH SUBSALICYLATE 524 MG/30 ML UD PO PRN (17:33)
[2020-02-24] MEDS ORDERED: MAGNESIUM CITRATE 300 ML BOTTLE PO PRN (17:33)
[2020-02-24] MEDS ORDERED: MENTHOL/PHENOL 1 EACH UD MM PRN (17:33)
[2020-02-24] MEDS ORDERED: ACETAMINOPHEN 325 MG TABLET (FP) PO PRN ×2 (17:33)
[2020-02-24] MEDS ORDERED: hydrOXYzine PAMOATE 25 MG CAPSULE (FP) PO PRN (17:33)
[2020-02-24] MEDS: chlordiazePOXIDE HCL 25 MG CAPSULE PO SCH ×2 (18:12→22:27)
[2020-02-24] MEDS: MELATONIN 5 MG TABLETS PO SCH (22:27)
[2020-02-24] MEDS: THIAMINE HCL 100 MG TABLET (FP) PO SCH (22:27)
[2020-02-25] MEDS: chlordiazePOXIDE HCL 25 MG CAPSULE PO SCH ×4 (05:28→22:14)
--- NOTE | 2020-02-25 09:52 | PN ---
[facility] CIWA - CIWA Score Nausea/Vomitin-No Nausea/No Vomiting Muscle Tremors: 3 Anxiety: 2 Agitation: 3 Paroxysmal Sweats: 3 Orientation: 0-Oriented Tacttile Disturbances: 0-None Auditory Disturbances: 0-None Visual Disturbances: 0-None Headache: 0-None Present CIWA-Ar Total Score: 11 S Progress Note (SOAP) Subjective: sweats chills interrupted sleep agitation Objective: 02/25/20 09:51 Vital Signs Temperature 98 F 02/25/20 05:22 Pulse Rate 71 02/25/20 05:22 Respiratory Rate 16 02/25/20 05:22 Blood Pressure 100/67 02/25/20 05:22 O2 Sat by Pulse Oximetry (%) 98 02/25/20 05:22 labs pending [id number] ambulating no acute distress Assessment: 02/25/20 09:52 withdrawals Plan: continue detox increase fluids pending labs
[2020-02-25 10:40] LABS: HEMATOCRIT 42.1 % (35.4-49); HEMOGLOBIN 13.7 GM/dL (11.7-16.9); MCH 32.5 pg (25.7-33.7); MCHC 32.6 g/dl (32.0-35.9); MEAN CELL VOLUME 99.8 fl (80-96); MEAN PLT VOLUME 6.7 fl (7.5-11.1); PLATELET COUNT 222 K/MM3 (134-434); RBC 4.22 M/mm3 (4.00-5.60); RDW 14.1 % (11.9-15.9); WHITE BLOOD COUNT 5.2 K/mm3 (4.0-10.0)
[2020-02-25] MEDS: PRENATAL VITAMINS W/ FOLIC ACID TABLET (FP) PO SCH (10:51)
[2020-02-25 10:55] LABS: ALBUMIN 3.8 g/dl (3.4-5.0); BILIRUBIN,TOTAL 0.9 mg/dL (0.2-1); CALCIUM 8.8 mg/dL (8.5-10.1); CREATININE 0.8 mg/dL (0.55-1.3); POTASSIUM 4.3 mmol/L (3.5-5.1); TOT PROT 6.7 g/dl (6.4-8.2)
[2020-02-25] MEDS: THIAMINE HCL 100 MG TABLET (FP) PO SCH (23:15)
[2020-02-25] MEDS: MELATONIN 5 MG TABLETS PO SCH (23:15)
[2020-02-26] MEDS: chlordiazePOXIDE HCL 25 MG CAPSULE PO SCH ×4 (06:49→22:50)
[2020-02-26] MEDS: PRENATAL VITAMINS W/ FOLIC ACID TABLET (FP) PO SCH (10:46)
--- NOTE | 2020-02-26 17:30 | PN ---
S CIWA - CIWA Score Nausea/Vomitin-No Nausea/No Vomiting Muscle Tremors: None Anxiety: 2 Agitation: 2 Paroxysmal Sweats: 3 Orientation: 2-Disoriented Date<2 days Tacttile Disturbances: 1-Very Mild Itch/Numbness Auditory Disturbances: 0-None Visual Disturbances: 1-Very Mild Sensitivity Headache: 0-None Present CIWA-Ar Total Score: 11 BHS Progress Note (SOAP) Subjective: Sweating, Chills, Fatigue. Objective: Patient A & O X 2 (Uncertain About Current Day/Date). Patient Observed Ambulating on Detox Unit Unassisted. In No Acute Distress. 02/26/20 17:28 Vital Signs Temperature 96.8 F L 02/26/20 12:27 Pulse Rate 99 H 02/26/20 12:27 Respiratory Rate 19 02/26/20 12:27 Blood Pressure 95/69 02/26/20 12:27 O2 Sat by Pulse Oximetry (%) 100 02/26/20 12:27 Laboratory Tests 02/24/20 02/25/20 02/25/20 17:50 08:10 08:10 WBC 5.2 RBC 4.22 Hgb 13.7 Hct 42.1 MCV 99.8 H MCH 32.5 MCHC 32.6 RDW 14.1 D Plt Count 222 MPV 6.7 L Sodium Potassium Chloride Carbon Dioxide Anion Gap BUN Creatinine Est GFR (CKD-EPI)AfAm Est GFR (CKD-EPI)NonAf Random Glucose Calcium Total Bilirubin AST ALT Alkaline Phosphatase Total Protein Albumin Syphilis Serology Non-reactive COVID-19 ([facility]) Not detected 02/25/20 08:10 WBC RBC Hgb Hct MCV MCH MCHC RDW Plt Count MPV Sodium 139 Potassium 4.3 Chloride 101 Carbon Dioxide 33 H Anion Gap 5 L BUN 9.0 Creatinine 0.8 Est GFR (CKD-EPI)AfAm 122.43 Est GFR (CKD-EPI)NonAf 105.63 Random Glucose 75 Calcium 8.8 Total Bilirubin 0.9 AST 67 H ALT 43 Alkaline Phosphatase 65 Total Protein 6.7 Albumin 3.8 Syphilis Serology COVID-19 ([facility]) Lab Results noted. Assessment: 02/26/20 17:28 WITHDRAWAL SYMPTOMS. ELEVATED AST LEVEL. Plan: Continue Detox. Increase Daily Oral Water Intake.
[2020-02-26] MEDS: THIAMINE HCL 100 MG TABLET (FP) PO SCH (22:50)
[2020-02-26] MEDS: MELATONIN 5 MG TABLETS PO SCH (22:50)
[2020-02-27] MEDS ORDERED: chlordiazePOXIDE HCL 10 MG CAPSULE PO PRN
[2020-02-27] MEDS: chlordiazePOXIDE HCL 10 MG CAPSULE PO SCH ×4 (05:59→22:23)
[2020-02-27] MEDS: PRENATAL VITAMINS W/ FOLIC ACID TABLET (FP) PO SCH (10:45)
[2020-02-27] MEDS ORDERED: FLU VACC QS2019-20(6MOS UP)/PF 60 MCG/0.5 ML SYRINGE IM ONE (10:57)
--- NOTE | 2020-02-27 18:07 | PN ---
S CIWA - CIWA Score Nausea/Vomitin-Mild Nausea/No Vomiting Muscle Tremors: 2 Anxiety: 2 Agitation: 1-Slight > Activity Paroxysmal Sweats: 1-Minimal Palms Moist Orientation: 0-Oriented Tacttile Disturbances: 0-None Auditory Disturbances: 0-None Visual Disturbances: 0-None Headache: 0-None Present CIWA-Ar Total Score: 7 BHS Progress Note (SOAP) Subjective: Tremor, sweating, interrupted sleep. Pt requests flu shot stating he had it last year. Objective: 02/27/20 18:04 Last Vital Signs Temp Pulse Resp BP Pulse Ox 98.2 F 78 18 124/67 100 02/27/20 13:05 02/27/20 13:05 02/27/20 13:05 02/27/20 13:05 02/27/20 13:05 Laboratory Tests 02/24/20 02/25/20 02/25/20 17:50 08:10 08:10 WBC 5.2 RBC 4.22 Hgb 13.7 Hct 42.1 MCV 99.8 H MCH 32.5 MCHC 32.6 RDW 14.1 D Plt Count 222 MPV 6.7 L Sodium Potassium Chloride Carbon Dioxide Anion Gap BUN Creatinine Est GFR (CKD-EPI)AfAm Est GFR (CKD-EPI)NonAf Random Glucose Calcium Total Bilirubin AST ALT Alkaline Phosphatase Total Protein Albumin Syphilis Serology Non-reactive COVID-19 ([facility]) Not detected 02/25/20 08:10 WBC RBC Hgb Hct MCV MCH MCHC RDW Plt Count MPV Sodium 139 Potassium 4.3 Chloride 101 Carbon Dioxide 33 H Anion Gap 5 L BUN 9.0 Creatinine 0.8 Est GFR (CKD-EPI)AfAm 122.43 Est GFR (CKD-EPI)NonAf 105.63 Random Glucose 75 Calcium 8.8 Total Bilirubin 0.9 AST 67 H ALT 43 Alkaline Phosphatase 65 Total Protein 6.7 Albumin 3.8 Syphilis Serology COVID-19 ([facility]) Labs reviewed: AST elevated Assessment: 02/27/20 18:05 Withdrawal sxs Noted with transaminitis Plan: Continue detox Encourage PO water intake Transaminitis: repeat AST
[2020-02-27] MEDS: THIAMINE HCL 100 MG TABLET (FP) PO SCH (22:23)
[2020-02-27] MEDS: MELATONIN 5 MG TABLETS PO SCH (22:23)
[2020-02-28] MEDS: chlordiazePOXIDE HCL 10 MG CAPSULE PO SCH ×2 (06:22→17:58)
--- NOTE | 2020-02-28 10:16 | PN ---
[facility] CIWA - CIWA Score Nausea/Vomitin-No Nausea/No Vomiting Muscle Tremors: 2 Anxiety: 0-No Anxiety, at Ease Agitation: 1-Slight > Activity Paroxysmal Sweats: No Perspiration Orientation: 0-Oriented Tacttile Disturbances: 0-None Auditory Disturbances: 0-None Visual Disturbances: 0-None Headache: 0-None Present CIWA-Ar Total Score: 3 [facility] Progress Note (SOAP) Subjective: sweats shakes Objective: 02/28/20 10:15 Vital Signs Temperature 97.3 F L 02/28/20 05:22 Pulse Rate 73 02/28/20 05:22 Respiratory Rate 20 02/28/20 05:22 Blood Pressure 110/71 02/28/20 05:22 O2 Sat by Pulse Oximetry (%) 98 02/28/20 05:22 Laboratory Tests 02/24/20 02/25/20 02/25/20 17:50 08:10 08:10 WBC 5.2 RBC 4.22 Hgb 13.7 Hct 42.1 MCV 99.8 H MCH 32.5 MCHC 32.6 RDW 14.1 D Plt Count 222 MPV 6.7 L Sodium Potassium Chloride Carbon Dioxide Anion Gap BUN Creatinine Est GFR (CKD-EPI)AfAm Est GFR (CKD-EPI)NonAf Random Glucose Calcium Total Bilirubin AST ALT Alkaline Phosphatase Total Protein Albumin Syphilis Serology Non-reactive COVID-19 ([facility]) Not detected 02/25/20 08:10 WBC RBC Hgb Hct MCV MCH MCHC RDW Plt Count MPV Sodium 139 Potassium 4.3 Chloride 101 Carbon Dioxide 33 H Anion Gap 5 L BUN 9.0 Creatinine 0.8 Est GFR (CKD-EPI)AfAm 122.43 Est GFR (CKD-EPI)NonAf 105.63 Random Glucose 75 Calcium 8.8 Total Bilirubin 0.9 AST 67 H ALT 43 Alkaline Phosphatase 65 Total Protein 6.7 Albumin 3.8 Syphilis Serology COVID-19 ([facility]) aaox3 ambulating no acute distress Assessment: 02/28/20 10:16 mild withdrawals Plan: continue detox increase fluids d/c in am
[2020-02-28] MEDS: PRENATAL VITAMINS W/ FOLIC ACID TABLET (FP) PO SCH (10:17)
[2020-02-28 11:10] LABS: SGOT/AST 77 U/L (15-37); SGPT/ALT 72 U/L (13-61)
[2020-02-28 13:50] VITALS: BP 106/66; PULSE 58; TEMP 97.8
--- NOTE | 2020-02-28 19:13 | PN ---
[facility] Progress Note Note: Patient sates has to leave to get home and wash clothes, as need to be a rehab referral in early am. States papers sent by counselor. Alert and oriented. Lungs CTA. Abd S/NT/BS+ No tremors. Gait steady. Vital Signs - 24 hr 02/27/20 02/28/20 02/28/20 21:14 05:22 09:18 Temperature 97.1 F L 97.3 F L 98.6 F Pulse Rate 87 73 85 Respiratory 16 20 19 Rate Blood Pressure 101/66 110/71 101/72 O2 Sat by Pulse 98 98 100 Oximetry (%) 02/28/20 12:55 Temperature 97.8 F Pulse Rate 58 L Respiratory 19 Rate Blood Pressure 106/66 O2 Sat by Pulse 100 Oximetry (%) Laboratory Last Values WBC 5.2 K/mm3 (4.0-10.0) 02/25/20 08:10 RBC 4.22 M/mm3 (4.00-5.60) 02/25/20 08:10 Hgb 13.7 GM/dL (11.7-16.9) 02/25/20 08:10 Hct 42.1 % (35.4-49) 02/25/20 08:10 MCV 99.8 fl (80-96) H 02/25/20 08:10 MCH 32.5 pg (25.7-33.7) 02/25/20 08:10 MCHC 32.6 g/dl (32.0-35.9) 02/25/20 08:10 RDW 14.1 % (11.9-15.9) D 02/25/20 08:10 Plt Count 222 K/MM3 (134-434) 02/25/20 08:10 MPV 6.7 fl (7.5-11.1) L 02/25/20 08:10 Sodium 139 mmol/L (136-145) 02/25/20 08:10 Potassium 4.3 mmol/L (3.5-5.1) 02/25/20 08:10 Chloride 101 mmol/L (98-107) 02/25/20 08:10 Carbon Dioxide 33 mmol/L (21-32) H 02/25/20 08:10 Anion Gap 5 MMOL/L (8-16) L 02/25/20 08:10 BUN 9.0 mg/dL (7-18) 02/25/20 08:10 Creatinine 0.8 mg/dL (0.55-1.3) 02/25/20 08:10 Est GFR (CKD-EPI)AfAm 122.43 02/25/20 08:10 Est GFR (CKD-EPI)NonAf 105.63 02/25/20 08:10 Random Glucose 75 mg/dL (74-106) 02/25/20 08:10 Calcium 8.8 mg/dL (8.5-10.1) 02/25/20 08:10 Total Bilirubin 0.9 mg/dL (0.2-1) 02/25/20 08:10 AST 77 U/L (15-37) H 02/28/20 08:00 ALT 72 U/L (13-61) H 02/28/20 08:00 Alkaline Phosphatase 65 U/L (45-117) 02/25/20 08:10 Total Protein 6.7 g/dl (6.4-8.2) 02/25/20 08:10 Albumin 3.8 g/dl (3.4-5.0) 02/25/20 08:10 Syphilis Serology Non-reactive (NONREACTIVE) 02/25/20 08:10 COVID-19 ([facility]) Not detected (Not Detected) 02/24/20 17:50 Reviewed abnormal LFT's w/ patient and discussed the risks if continues to drink. Discussed risk of relapsing and encouraged to seek support when gets home and states will. Denies nicotine use. Will discharge now.
--- NOTE | 2020-02-28 19:13 | DS ---
[facility] Detox Discharge Summary Admission Date: 02/24/20 Discharge Date: 02/28/20 - History Present History: Alcohol Dependence, Cannabis Dependence, Cocaine Dependence, Pcp Dependence Additional Comments: Patient admitted w/ alcohol withdrawal symptoms. Pertinent Past History: Poly-substance use: Marijuana, Cocaine and PCP. Denies nicotine use disorder. - Physical Exam Results Vital Signs: Vital Signs Temperature 97.8 F 02/28/20 12:55 Pulse Rate 58 L 02/28/20 12:55 Respiratory Rate 19 02/28/20 12:55 Blood Pressure 106/66 02/28/20 12:55 O2 Sat by Pulse Oximetry (%) 100 02/28/20 12:55 Pertinent Admission Physical Exam Findings: Tolerated detox w/ Libruim. Laboratory Last Values WBC 5.2 K/mm3 (4.0-10.0) 02/25/20 08:10 RBC 4.22 M/mm3 (4.00-5.60) 02/25/20 08:10 Hgb 13.7 GM/dL (11.7-16.9) 02/25/20 08:10 Hct 42.1 % (35.4-49) 02/25/20 08:10 MCV 99.8 fl (80-96) H 02/25/20 08:10 MCH 32.5 pg (25.7-33.7) 02/25/20 08:10 MCHC 32.6 g/dl (32.0-35.9) 02/25/20 08:10 RDW 14.1 % (11.9-15.9) D 02/25/20 08:10 Plt Count 222 K/MM3 (134-434) 02/25/20 08:10 MPV 6.7 fl (7.5-11.1) L 02/25/20 08:10 Sodium 139 mmol/L (136-145) 02/25/20 08:10 Potassium 4.3 mmol/L (3.5-5.1) 02/25/20 08:10 Chloride 101 mmol/L (98-107) 02/25/20 08:10 Carbon Dioxide 33 mmol/L (21-32) H 02/25/20 08:10 Anion Gap 5 MMOL/L (8-16) L 02/25/20 08:10 BUN 9.0 mg/dL (7-18) 02/25/20 08:10 Creatinine 0.8 mg/dL (0.55-1.3) 02/25/20 08:10 Est GFR (CKD-EPI)AfAm 122.43 02/25/20 08:10 Est GFR (CKD-EPI)NonAf 105.63 02/25/20 08:10 Random Glucose 75 mg/dL (74-106) 02/25/20 08:10 Calcium 8.8 mg/dL (8.5-10.1) 02/25/20 08:10 Total Bilirubin 0.9 mg/dL (0.2-1) 02/25/20 08:10 AST 77 U/L (15-37) H 02/28/20 08:00 ALT 72 U/L (13-61) H 02/28/20 08:00 Alkaline Phosphatase 65 U/L (45-117) 02/25/20 08:10 Total Protein 6.7 g/dl (6.4-8.2) 02/25/20 08:10 Albumin 3.8 g/dl (3.4-5.0) 02/25/20 08:10 Syphilis Serology Non-reactive (NONREACTIVE) 02/25/20 08:10 COVID-19 ([facility]) Not detected (Not Detected) 02/24/20 17:50 - Treatment Hospital Course: Detox Protocol Followed, Detoxed Safely, Discharged Condition Good, Rehab Referral Accepted - Medication Discharge Medications: Ambulatory Orders NK [No Known Home Medication] 08/28/15 - Diagnosis (1) Alcohol dependence with uncomplicated withdrawal Status: Acute (2) Elevated aspartate aminotransferase level Status: Chronic (3) Cannabis dependence, uncomplicated Status: Chronic (4) Cocaine dependence Status: Chronic Qualifiers: Substance use status: uncomplicated Qualified Code(s): F14.20 - Cocaine dependence, uncomplicated (5) PCP abuse Status: Chronic - AMA Did Patient Leave Against Medical Advice: No
[2020-02-29] MEDS ORDERED: chlordiazePOXIDE HCL 10 MG CAPSULE PO ONE (05:00)
== END 2020-02-28 19:16 | disposition home or self-care (01) | DRG 774 ==
LOC: YASAS 13:10 → Y6N 17:37
PROVIDERS: ADMIT Allergy & Immunology; ATTEND Allergy & Immunology
PROC: HZ2ZZZZ Detoxification Services for Substance Abuse Treatment (ICD-10-PCS; principal; 2020-02-24)
DX: F10.230 Alcohol dependence with withdrawal, uncomplicated (principal); F14.20 Cocaine dependence, uncomplicated; F16.20 Hallucinogen dependence, uncomplicated; F12.20 Cannabis dependence, uncomplicated; F17.211 Nicotine dependence, cigarettes, in remission; R74.0 Nonspecific elevation of levels of transaminase and lactic acid dehydrogenase [LDH]; Z87.828 Personal history of other (healed) physical injury and trauma; Z88.0 Allergy status to penicillin
CPT/HCPCS: 36415; 80053; 84450; 84460; 85027; 86780; U0003

== ENCOUNTER 2021-08-13 13:18 | Inpatient (IN) | payer BC ==
[2021-08-13] MEDS ORDERED: MENTHOL/PHENOL 1 EACH UD MM PRN (15:45)
[2021-08-13] MEDS ORDERED: NICOTINE 10 MG CARTRIDGE (INHALER) IH PRN (15:45)
[2021-08-13] MEDS ORDERED: chlordiazePOXIDE HCL 25 MG CAPSULE PO PRN (15:45)
[2021-08-13] MEDS ORDERED: MAGNESIUM HYDROX 2400MG/30ML ORAL SUSPENSION 30 ML CUP PO PRN (15:45)
[2021-08-13] MEDS ORDERED: ACETAMINOPHEN 325 MG TABLET (FP) PO PRN ×2 (15:45)
[2021-08-13] MEDS ORDERED: BISMUTH SUBSALICYLATE 524 MG/30 ML PO PRN (15:45)
[2021-08-13] MEDS ORDERED: IBUPROFEN 400 MG TABLET (FP) PO PRN (15:45)
[2021-08-13] MEDS ORDERED: ONDANSETRON *ODT* 4 MG TABLET SL PRN (15:45)
[2021-08-13] MEDS ORDERED: METHOCARBAMOL 500 MG TABLET PO PRN (15:45)
[2021-08-13] MEDS ORDERED: MAGNESIUM CITRATE 300 ML BOTTLE PO PRN (15:45)
[2021-08-13] MEDS ORDERED: MAG HYDROX/AL HYDROX/SIMETH 30 ML UNIT-DOSE CUP PO PRN (15:45)
[2021-08-13] MEDS ORDERED: LOPERAMIDE HCL 2 MG CAPSULE PO PRN (15:45)
[2021-08-13 18:28] VITALS: BMI 18.6
[2021-08-13] MEDS: chlordiazePOXIDE HCL 25 MG CAPSULE PO SCH ×2 (19:34→22:21)
[2021-08-13] MEDS: hydrOXYzine PAMOATE 25 MG CAPSULE (FP) PO SCH ×2 (19:37→22:22)
[2021-08-13] MEDS: MELATONIN 5 MG TABLETS PO SCH (22:21)
[2021-08-13] MEDS: THIAMINE HCL 100 MG TABLET (FP) PO SCH (22:22)
[2021-08-14] MEDS: hydrOXYzine PAMOATE 25 MG CAPSULE (FP) PO SCH ×5 (05:30→22:49)
[2021-08-14] MEDS: chlordiazePOXIDE HCL 25 MG CAPSULE PO SCH ×4 (05:30→22:51)
[2021-08-14 09:54] LABS: HEMATOCRIT 39.4 % (35.4-49); HEMOGLOBIN 13.6 GM/dL (11.7-16.9); MCH 33.6 pg (25.7-33.7); MCHC 34.5 g/dl (32.0-35.9); MEAN CELL VOLUME 97.3 fl (80-96); MEAN PLT VOLUME 6.7 fl (7.5-11.1); PLATELET COUNT 161 10^3/uL (134-434); RBC 4.05 M/mm3 (4.00-5.60); RDW 12.6 % (11.9-15.9); WHITE BLOOD COUNT 4.9 K/mm3 (4.0-10.0)
[2021-08-14 09:57] LABS: BLOOD UREA NITROGEN 13.6 mg/dL (7-18); CALCIUM 8.3 mg/dL (8.5-10.1)
[2021-08-14 09:58] LABS: ALBUMIN 3.4 g/dl (3.4-5.0)
[2021-08-14 10:00] LABS: CREATININE 0.8 mg/dL (0.55-1.3)
[2021-08-14 10:02] LABS: BILIRUBIN,TOTAL 0.8 mg/dL (0.2-1)
[2021-08-14] MEDS: PRENATAL VITAMINS W/ FOLIC ACID TABLET (FP) PO SCH (10:12)
[2021-08-14] MEDS ORDERED: FLU VACC QS2021-22(6MOS UP)/PF 60 MCG/0.5 ML SYRINGE IM ONE (13:00)
[2021-08-14 13:05] LABS: HIV INTERPRETATION NEGATIVE (NEGATIVE)
[2021-08-14] MEDS ORDERED: DICYCLOMINE HCL 10 MG CAPSULE PO ONE (14:26)
[2021-08-14] MEDS: FAMOTIDINE 20 MG TABLET PO SCH (22:48)
[2021-08-14] MEDS: MELATONIN 5 MG TABLETS PO SCH (22:49)
[2021-08-14] MEDS: THIAMINE HCL 100 MG TABLET (FP) PO SCH (22:50)
[2021-08-15] MEDS: chlordiazePOXIDE HCL 25 MG CAPSULE PO SCH ×2 (05:34→10:27)
[2021-08-15] MEDS: hydrOXYzine PAMOATE 25 MG CAPSULE (FP) PO SCH ×3 (05:34→13:40)
[2021-08-15] MEDS: PRENATAL VITAMINS W/ FOLIC ACID TABLET (FP) PO SCH (10:26)
[2021-08-15] MEDS: FAMOTIDINE 20 MG TABLET PO SCH (10:27)
[2021-08-15 12:54] VITALS: BP 115/69; PULSE 94; TEMP 98
[2021-08-15 14:08] LABS: SARS-CoV-2 NAA Not Detected (Not Detected)
[2021-08-16] MEDS ORDERED: chlordiazePOXIDE HCL 10 MG CAPSULE PO PRN
[2021-08-16] MEDS ORDERED: chlordiazePOXIDE HCL 10 MG CAPSULE PO SCH (05:00)
[2021-08-17] MEDS ORDERED: chlordiazePOXIDE HCL 10 MG CAPSULE PO SCH (05:00)
[2021-08-18] MEDS ORDERED: chlordiazePOXIDE HCL 10 MG CAPSULE PO ONE (05:00)
== END 2021-08-15 16:55 | disposition left against medical advice (07) | DRG 770 ==
LOC: YASAS 13:18 → Y6N 18:44
PROVIDERS: ADMIT Allergy & Immunology; ATTEND Allergy & Immunology
PROC: HZ2ZZZZ Detoxification Services for Substance Abuse Treatment (ICD-10-PCS; principal; 2021-08-13)
DX: F10.230 Alcohol dependence with withdrawal, uncomplicated (principal); F14.20 Cocaine dependence, uncomplicated; F12.20 Cannabis dependence, uncomplicated; F16.10 Hallucinogen abuse, uncomplicated; F19.24 Other psychoactive substance dependence with psychoactive substance-induced mood disorder; F19.282 Other psychoactive substance dependence with psychoactive substance-induced sleep disorder; G47.00 Insomnia, unspecified; R63.4 Abnormal weight loss; R74.01 Elevation of levels of liver transaminase levels; R01.1 Cardiac murmur, unspecified; Z87.891 Personal history of nicotine dependence; Z86.11 Personal history of tuberculosis; Z88.0 Allergy status to penicillin
CPT/HCPCS: 36415; 80053; 85027; 86780; 87389; 87811; 90686; C9803-CS; G0008; U0003; U0005

== ENCOUNTER 2021-11-05 17:06 | Inpatient (IN) | payer BC ==
[2021-11-05 17:44] VITALS: BMI 20.9
[2021-11-05] MEDS ORDERED: BISMUTH SUBSALICYLATE 524 MG/30 ML PO PRN (19:52)
[2021-11-05] MEDS ORDERED: DICYCLOMINE HCL 10 MG CAPSULE PO PRN (19:52)
[2021-11-05] MEDS ORDERED: NICOTINE 10 MG CARTRIDGE (INHALER) IH PRN (19:52)
[2021-11-05] MEDS ORDERED: ONDANSETRON *ODT* 4 MG TABLET SL PRN (19:52)
[2021-11-05] MEDS ORDERED: MAG HYDROX/AL HYDROX/SIMETH 30 ML UNIT-DOSE CUP PO PRN (19:52)
[2021-11-05] MEDS ORDERED: ACETAMINOPHEN 325 MG TABLET (FP) PO PRN ×2 (19:52)
[2021-11-05] MEDS ORDERED: IBUPROFEN 400 MG TABLET (FP) PO PRN (19:52)
[2021-11-05] MEDS ORDERED: LORazepam 1 MG TABLET PO PRN (19:52)
[2021-11-05] MEDS ORDERED: LOPERAMIDE HCL 2 MG CAPSULE PO PRN (19:52)
[2021-11-05] MEDS ORDERED: METHOCARBAMOL 500 MG TABLET PO PRN (19:52)
[2021-11-05] MEDS ORDERED: LORazepam 2 MG TABLET PO ONE (19:52)
[2021-11-05] MEDS ORDERED: MAGNESIUM HYDROX 2400MG/30ML ORAL SUSPENSION 30 ML CUP PO PRN (19:52)
[2021-11-05] MEDS ORDERED: MAGNESIUM CITRATE 300 ML BOTTLE PO PRN (19:52)
[2021-11-05] MEDS ORDERED: BENZOCAINE/MENTHOL (CHLORASEPTIC ) LOZENGE MM PRN (19:52)
[2021-11-06] MEDS: THIAMINE HCL 100 MG TABLET (FP) PO SCH ×2 (00:14→22:33)
[2021-11-06] MEDS: hydrOXYzine PAMOATE 25 MG CAPSULE (FP) PO SCH ×6 (00:14→22:37)
[2021-11-06] MEDS: LORazepam 2 MG TABLET PO SCH ×5 (00:14→22:34)
[2021-11-06] MEDS: MELATONIN 5 MG TABLETS PO SCH ×2 (00:15→22:34)
[2021-11-06] MEDS: PRENATAL VITAMINS W/ FOLIC ACID TABLET (FP) PO SCH (10:58)
[2021-11-06 11:38] LABS: HEMATOCRIT 38.7 % (35.4-49); HEMOGLOBIN 13.3 GM/dL (11.7-16.9); MCH 32.7 pg (25.7-33.7); MCHC 34.4 g/dl (32.0-35.9); MEAN CELL VOLUME 95.2 fl (80-96); PLATELET COUNT 189 10^3/uL (134-434); RBC 4.07 M/mm3 (4.00-5.60); RDW 13.8 % (11.9-15.9); WHITE BLOOD COUNT 10.7 K/mm3 (4.0-10.0)
[2021-11-06 12:08] LABS: CALCIUM 8.2 mg/dL (8.5-10.1)
[2021-11-06 12:09] LABS: BLOOD UREA NITROGEN 10.3 mg/dL (7-18)
[2021-11-06 12:12] LABS: CREATININE 0.8 mg/dL (0.55-1.3); TOT PROT 5.6 g/dl (6.4-8.2)
[2021-11-06 12:13] LABS: BILIRUBIN,TOTAL 0.6 mg/dL (0.2-1)
[2021-11-06 12:56] LABS: HIV INTERPRETATION NEGATIVE (NEGATIVE)
[2021-11-07] MEDS: LORazepam 1 MG TABLET PO SCH ×4 (05:34→22:35)
[2021-11-07] MEDS: hydrOXYzine PAMOATE 25 MG CAPSULE (FP) PO SCH ×5 (05:35→22:35)
[2021-11-07 09:48] LABS: HEMATOCRIT 40.5 % (35.4-49); HEMOGLOBIN 13.7 GM/dL (11.7-16.9); MCH 32.3 pg (25.7-33.7); MCHC 33.9 g/dl (32.0-35.9); MEAN CELL VOLUME 95.3 fl (80-96); PLATELET COUNT 158 10^3/uL (134-434); RBC 4.26 M/mm3 (4.00-5.60); RDW 13.5 % (11.9-15.9); WHITE BLOOD COUNT 9.1 K/mm3 (4.0-10.0)
[2021-11-07] MEDS: PRENATAL VITAMINS W/ FOLIC ACID TABLET (FP) PO SCH (10:11)
[2021-11-07 10:15] LABS: ANISOCYTOSIS 1+; MACROCYTOSIS 0
[2021-11-07 16:08] LABS: SARS-CoV-2 NAA Not Detected (Not Detected)
[2021-11-07] MEDS: MELATONIN 5 MG TABLETS PO SCH (22:35)
[2021-11-07] MEDS: THIAMINE HCL 100 MG TABLET (FP) PO SCH (22:35)
[2021-11-08] MEDS ORDERED: LORazepam 0.5 MG TABLET PO PRN
[2021-11-08] MEDS: hydrOXYzine PAMOATE 25 MG CAPSULE (FP) PO SCH ×5 (06:51→22:04)
[2021-11-08] MEDS: LORazepam 0.5 MG TABLET PO SCH ×4 (06:51→22:04)
[2021-11-08] MEDS: PRENATAL VITAMINS W/ FOLIC ACID TABLET (FP) PO SCH (10:09)
[2021-11-08] MEDS: THIAMINE HCL 100 MG TABLET (FP) PO SCH (22:04)
[2021-11-08] MEDS: MELATONIN 5 MG TABLETS PO SCH (22:04)
[2021-11-09] MEDS ORDERED: LORazepam 0.5 MG TABLET PO ONE (05:00)
[2021-11-09] MEDS: hydrOXYzine PAMOATE 25 MG CAPSULE (FP) PO SCH ×2 (05:19→10:33)
[2021-11-09 09:01] VITALS: BP 102/64; PULSE 89; TEMP 97.5
[2021-11-09] MEDS: PRENATAL VITAMINS W/ FOLIC ACID TABLET (FP) PO SCH (10:33)
== END 2021-11-09 12:25 | disposition home or self-care (01) | DRG 775 ==
LOC: YASAS 17:06 → Y3N 21:32
PROVIDERS: ADMIT Allergy & Immunology; ATTEND Surgery
PROC: HZ2ZZZZ Detoxification Services for Substance Abuse Treatment (ICD-10-PCS; principal; 2021-11-05)
DX: F10.230 Alcohol dependence with withdrawal, uncomplicated (principal); F16.10 Hallucinogen abuse, uncomplicated; Z87.891 Personal history of nicotine dependence; Z28.310 Unvaccinated for COVID-19; Z88.0 Allergy status to penicillin
CPT/HCPCS: 36415; 80053; 85025; 85027; 86780; 87389; C9803-CS; U0003; U0005

== ENCOUNTER 2022-09-13 09:19 | Inpatient (IN) | payer BC ==
[2022-09-13 10:06] VITALS: BMI 22.1
[2022-09-13] MEDS ORDERED: IBUPROFEN 400 MG TABLET (FP) PO PRN (10:42)
[2022-09-13] MEDS ORDERED: BENZOCAINE/MENTHOL (CHLORASEPTIC ) LOZENGE MM PRN (10:42)
[2022-09-13] MEDS ORDERED: DICYCLOMINE HCL 10 MG CAPSULE PO PRN (10:42)
[2022-09-13] MEDS ORDERED: MAG HYDROX/AL HYDROX/SIMETH 30 ML UNIT-DOSE CUP PO PRN (10:42)
[2022-09-13] MEDS ORDERED: guaiFENesin 600 MG TABLET.ER (FP) PO PRN (10:42)
[2022-09-13] MEDS ORDERED: MAGNESIUM HYDROX 2400MG/30ML ORAL SUSPENSION 30 ML CUP PO PRN (10:42)
[2022-09-13] MEDS ORDERED: POLYETHYLENE GLYCOL (HEALTHYLAX) 3350 17 GM PACKET PO PRN (10:42)
[2022-09-13] MEDS ORDERED: NALOXONE HCL 0.4 MG/ML VIAL IM PRN (10:42)
[2022-09-13] MEDS ORDERED: hydrOXYzine PAMOATE 25 MG CAPSULE (FP) PO PRN (10:42)
[2022-09-13] MEDS ORDERED: IBUPROFEN 600 MG TABLET (FP) PO PRN (10:42)
[2022-09-13] MEDS ORDERED: NALOXONE HCL (KLOXXADO) 8 MG SPRAY NS PRN (10:42)
[2022-09-13] MEDS ORDERED: ONDANSETRON *ODT* 4 MG TABLET SL PRN (10:42)
[2022-09-13] MEDS ORDERED: ACETAMINOPHEN 325 MG TABLET (FP) PO PRN (10:42)
[2022-09-13] MEDS ORDERED: BISMUTH SUBSALICYLATE 524 MG/30 ML PO PRN (10:42)
[2022-09-13] MEDS ORDERED: BENZONATATE 200 MG CAPSULE PO PRN (10:42)
[2022-09-13] MEDS ORDERED: METHOCARBAMOL 500 MG TABLET PO PRN (10:42)
[2022-09-13] MEDS ORDERED: LOPERAMIDE HCL 2 MG CAPSULE PO PRN (10:42)
[2022-09-13] MEDS ORDERED: chlordiazePOXIDE HCL 25 MG CAPSULE PO PRN (10:45)
[2022-09-13 14:22] LABS: HEMATOCRIT 39.7 % (35.4-49); HEMOGLOBIN 13.5 GM/dL (11.7-16.9); MCH 32.3 pg (25.7-33.7); MCHC 34.1 g/dl (32.0-35.9); MEAN CELL VOLUME 94.7 fl (80-96); MEAN PLT VOLUME 6.5 fl (7.5-11.1); PLATELET COUNT 207 10^3/uL (134-434); RDW 15.5 % (11.9-15.9)
[2022-09-13 14:43] LABS: CALCIUM 8.9 mg/dL (8.5-10.1)
[2022-09-13 14:44] LABS: ALBUMIN 3.9 g/dl (3.4-5.0); BLOOD UREA NITROGEN 7.2 mg/dL (7-18)
[2022-09-13 14:47] LABS: CREATININE 0.7 mg/dL (0.55-1.3)
[2022-09-13 14:48] LABS: TOT PROT 6.9 g/dl (6.4-8.2)
[2022-09-13] MEDS: chlordiazePOXIDE HCL 25 MG CAPSULE PO SCH ×3 (16:47→22:31)
[2022-09-13] MEDS: THIAMINE HCL 100 MG TABLET (FP) PO SCH (22:31)
[2022-09-13] MEDS: MELATONIN 5 MG TABLETS PO SCH (22:31)
[2022-09-14] MEDS: chlordiazePOXIDE HCL 25 MG CAPSULE PO SCH ×4 (06:07→22:07)
[2022-09-14] MEDS: PRENATAL VITAMINS W/ FOLIC ACID TABLET (FP) PO SCH (10:55)
[2022-09-14] MEDS ORDERED: FLU VACC QS2022-23(6MOS UP)/PF 60 MCG/0.5 ML SYRINGE IM ONE (12:00)
[2022-09-14] MEDS: LACTULOSE 20 GM/30 ML UDC (FOR ORAL USE ONLY) PO SCH ×2 (13:11→22:07)
[2022-09-14] MEDS: MELATONIN 5 MG TABLETS PO SCH (22:07)
[2022-09-14] MEDS: THIAMINE HCL 100 MG TABLET (FP) PO SCH (22:07)
[2022-09-15] MEDS: chlordiazePOXIDE HCL 25 MG CAPSULE PO SCH ×2 (05:55→10:51)
[2022-09-15] MEDS: LACTULOSE 20 GM/30 ML UDC (FOR ORAL USE ONLY) PO SCH (06:40)
[2022-09-15 07:02] VITALS: TEMP 97.5
[2022-09-15 10:16] VITALS: BP 110/78; PULSE 113; RESP 18
[2022-09-15] MEDS: PRENATAL VITAMINS W/ FOLIC ACID TABLET (FP) PO SCH (10:51)
[2022-09-16] MEDS ORDERED: chlordiazePOXIDE HCL 10 MG CAPSULE PO SCH (05:00)
[2022-09-17] MEDS ORDERED: chlordiazePOXIDE HCL 10 MG CAPSULE PO SCH (05:00)
[2022-09-18] MEDS ORDERED: chlordiazePOXIDE HCL 10 MG CAPSULE PO ONE (05:00)
== END 2022-09-15 12:15 | disposition left against medical advice (07) | DRG 770 ==
LOC: YASAS 09:19 → Y6N 10:40
PROVIDERS: ADMIT Allergy & Immunology; ATTEND Surgery
PROC: HZ2ZZZZ Detoxification Services for Substance Abuse Treatment (ICD-10-PCS; principal; 2022-09-13)
DX: F10.20 Alcohol dependence, uncomplicated (principal); F14.20 Cocaine dependence, uncomplicated; F12.20 Cannabis dependence, uncomplicated; F19.282 Other psychoactive substance dependence with psychoactive substance-induced sleep disorder; R76.11 Nonspecific reaction to tuberculin skin test without active tuberculosis; R79.89 Other specified abnormal findings of blood chemistry; R63.4 Abnormal weight loss; Z68.22 Body mass index [BMI] 22.0-22.9, adult; Z28.310 Unvaccinated for COVID-19; Z28.9 Immunization not carried out for unspecified reason; Z88.0 Allergy status to penicillin
CPT/HCPCS: 36415; 80053; 82140; 85027; 86780; 87811; 93005; 93010; C9803-CS; G0008; Q2036; U0003; U0005

== ENCOUNTER 2022-10-26 08:40 | Inpatient (IN) | payer BC ==
[2022-10-26 09:25] VITALS: BMI 22.1
[2022-10-26] MEDS ORDERED: NALOXONE HCL (KLOXXADO) 8 MG SPRAY NS PRN (10:22)
[2022-10-26] MEDS ORDERED: guaiFENesin 600 MG TABLET.ER (FP) PO PRN (10:22)
[2022-10-26] MEDS ORDERED: chlordiazePOXIDE HCL 25 MG CAPSULE PO PRN (10:22)
[2022-10-26] MEDS ORDERED: MAGNESIUM HYDROX 2400MG/30ML ORAL SUSPENSION 30 ML CUP PO PRN (10:22)
[2022-10-26] MEDS ORDERED: BISMUTH SUBSALICYLATE 524 MG/30 ML PO PRN (10:22)
[2022-10-26] MEDS ORDERED: ONDANSETRON *ODT* 4 MG TABLET SL PRN (10:22)
[2022-10-26] MEDS ORDERED: DICYCLOMINE HCL 10 MG CAPSULE PO PRN (10:22)
[2022-10-26] MEDS ORDERED: NALOXONE HCL 0.4 MG/ML VIAL IM PRN (10:22)
[2022-10-26] MEDS ORDERED: BENZONATATE 200 MG CAPSULE PO PRN (10:22)
[2022-10-26] MEDS ORDERED: ACETAMINOPHEN 325 MG TABLET (FP) PO PRN (10:22)
[2022-10-26] MEDS ORDERED: LOPERAMIDE HCL 2 MG CAPSULE PO PRN (10:22)
[2022-10-26] MEDS ORDERED: MAG HYDROX/AL HYDROX/SIMETH 30 ML UNIT-DOSE CUP PO PRN (10:22)
[2022-10-26] MEDS ORDERED: IBUPROFEN 600 MG TABLET (FP) PO PRN (10:22)
[2022-10-26] MEDS ORDERED: METHOCARBAMOL 500 MG TABLET PO PRN (10:22)
[2022-10-26] MEDS ORDERED: IBUPROFEN 400 MG TABLET (FP) PO PRN (10:22)
[2022-10-26] MEDS ORDERED: BENZOCAINE/MENTHOL (CHLORASEPTIC ) LOZENGE MM PRN (10:22)
[2022-10-26] MEDS ORDERED: POLYETHYLENE GLYCOL (HEALTHYLAX) 3350 17 GM PACKET PO PRN (10:22)
[2022-10-26] MEDS: chlordiazePOXIDE HCL 25 MG CAPSULE PO SCH ×2 (17:26→22:17)
[2022-10-26] MEDS ORDERED: MELATONIN 5 MG TABLETS PO SCH (22:00)
[2022-10-26] MEDS ORDERED: THIAMINE HCL 100 MG TABLET (FP) PO SCH (22:00)
[2022-10-27] MEDS: chlordiazePOXIDE HCL 25 MG CAPSULE PO SCH ×2 (05:29→10:24)
[2022-10-27 09:53] LABS: POTASSIUM 3.8 mmol/L (3.5-5.1)
[2022-10-27 09:56] LABS: CALCIUM 8.9 mg/dL (8.5-10.1)
[2022-10-27 09:57] LABS: ALBUMIN 3.5 g/dl (3.4-5.0)
[2022-10-27 09:59] LABS: CREATININE 0.8 mg/dL (0.55-1.3)
[2022-10-27] MEDS ORDERED: PRENATAL VITAMINS W/ FOLIC ACID TABLET (FP) PO SCH (10:00)
[2022-10-27 10:01] LABS: BILIRUBIN,TOTAL 0.7 mg/dL (0.2-1); TOT PROT 6.3 g/dl (6.4-8.2)
[2022-10-27 10:03] LABS: HEMATOCRIT 38.3 % (35.4-49); HEMOGLOBIN 13.2 GM/dL (11.7-16.9); MCH 33.8 pg (25.7-33.7); MCHC 34.5 g/dl (32.0-35.9); MEAN PLT VOLUME 7.1 fl (7.5-11.1); PLATELET COUNT 175 10^3/uL (134-434); RDW 13.7 % (11.9-15.9); WHITE BLOOD COUNT 5.5 K/mm3 (4.0-10.0)
[2022-10-27] MEDS ORDERED: LACTULOSE 20 GM/30 ML UDC (FOR ORAL USE ONLY) PO SCH (14:00)
[2022-10-27 17:19] VITALS: BP 95/68; PULSE 92; RESP 16; TEMP 97.3
[2022-10-28] MEDS ORDERED: chlordiazePOXIDE HCL 25 MG CAPSULE PO SCH (05:00)
[2022-10-29] MEDS ORDERED: chlordiazePOXIDE HCL 10 MG CAPSULE PO PRN
[2022-10-29] MEDS ORDERED: chlordiazePOXIDE HCL 10 MG CAPSULE PO SCH (05:00)
[2022-10-30] MEDS ORDERED: chlordiazePOXIDE HCL 10 MG CAPSULE PO SCH (05:00)
[2022-10-31] MEDS ORDERED: chlordiazePOXIDE HCL 10 MG CAPSULE PO ONE (05:00)
== END 2022-10-27 17:59 | disposition left against medical advice (07) | DRG 770 ==
LOC: YASAS 08:40 → Y3N 10:12
PROVIDERS: ADMIT Allergy & Immunology; ATTEND Surgery
PROC: HZ2ZZZZ Detoxification Services for Substance Abuse Treatment (ICD-10-PCS; principal; 2022-10-26)
DX: F10.230 Alcohol dependence with withdrawal, uncomplicated (principal); F14.20 Cocaine dependence, uncomplicated; F12.20 Cannabis dependence, uncomplicated; F19.282 Other psychoactive substance dependence with psychoactive substance-induced sleep disorder; R79.89 Other specified abnormal findings of blood chemistry; Z87.891 Personal history of nicotine dependence; Z86.11 Personal history of tuberculosis; Z88.0 Allergy status to penicillin
CPT/HCPCS: 36415; 80053; 82140; 85027; 86780; 87811; C9803-CS; U0003; U0005

== ENCOUNTER 2023-01-23 15:40 | Inpatient (IN) | payer OTHER ==
[2023-01-23 17:41] VITALS: BMI 21.4
[2023-01-23] MEDS ORDERED: DICYCLOMINE HCL 10 MG CAPSULE PO PRN (18:42)
[2023-01-23] MEDS ORDERED: METHOCARBAMOL 500 MG TABLET PO PRN (18:42)
[2023-01-23] MEDS ORDERED: hydrOXYzine PAMOATE 25 MG CAPSULE (FP) PO PRN (18:42)
[2023-01-23] MEDS ORDERED: BENZONATATE 200 MG CAPSULE PO PRN (18:42)
[2023-01-23] MEDS ORDERED: ONDANSETRON *ODT* 4 MG TABLET SL PRN (18:42)
[2023-01-23] MEDS ORDERED: BISMUTH SUBSALICYLATE 524 MG/30 ML PO PRN (18:42)
[2023-01-23] MEDS ORDERED: MAG HYDROX/AL HYDROX/SIMETH 30 ML UNIT-DOSE CUP PO PRN (18:42)
[2023-01-23] MEDS ORDERED: guaiFENesin 600 MG TABLET.ER (FP) PO PRN (18:42)
[2023-01-23] MEDS ORDERED: POLYETHYLENE GLYCOL (HEALTHYLAX) 3350 17 GM PACKET PO PRN (18:42)
[2023-01-23] MEDS ORDERED: IBUPROFEN 400 MG TABLET (FP) PO PRN (18:42)
[2023-01-23] MEDS ORDERED: NALOXONE HCL 0.4 MG/ML VIAL IM PRN (18:42)
[2023-01-23] MEDS ORDERED: IBUPROFEN 600 MG TABLET (FP) PO PRN (18:42)
[2023-01-23] MEDS ORDERED: ACETAMINOPHEN 325 MG TABLET (FP) PO PRN (18:42)
[2023-01-23] MEDS ORDERED: LOPERAMIDE HCL 2 MG CAPSULE PO PRN (18:42)
[2023-01-23] MEDS ORDERED: NALOXONE HCL (KLOXXADO) 8 MG SPRAY NS PRN (18:42)
[2023-01-23] MEDS ORDERED: BENZOCAINE/MENTHOL (CHLORASEPTIC ) LOZENGE MM PRN (18:42)
[2023-01-23] MEDS ORDERED: MAGNESIUM HYDROX 2400MG/30ML ORAL SUSPENSION 30 ML CUP PO PRN (18:42)
[2023-01-23] MEDS: THIAMINE HCL 100 MG TABLET (FP) PO SCH (23:48)
[2023-01-23] MEDS: MELATONIN 5 MG TABLETS PO SCH (23:48)
[2023-01-24 10:43] LABS: HEMATOCRIT 40.7 % (35.4-49); HEMOGLOBIN 13.4 GM/dL (11.7-16.9); MCH 32.3 pg (25.7-33.7); MCHC 32.9 g/dl (32.0-35.9); MEAN PLT VOLUME 7.2 fl (7.5-11.1); PLATELET COUNT 174 10^3/uL (134-434); RBC 4.16 M/mm3 (4.00-5.60); RDW 13.1 % (11.9-15.9); WHITE BLOOD COUNT 6.6 K/mm3 (4.0-10.0)
[2023-01-24] MEDS: PRENATAL VITAMINS W/ FOLIC ACID TABLET (FP) PO SCH (10:43)
[2023-01-24 10:46] LABS: POTASSIUM 4.4 mmol/L (3.5-5.1)
[2023-01-24 10:49] LABS: ALBUMIN 3.9 g/dl (3.4-5.0); CALCIUM 8.5 mg/dL (8.5-10.1)
[2023-01-24 10:51] LABS: BLOOD UREA NITROGEN 7.9 mg/dL (7-18)
[2023-01-24 10:53] LABS: CREATININE 0.9 mg/dL (0.55-1.3)
[2023-01-24 10:54] LABS: BILIRUBIN,TOTAL 0.7 mg/dL (0.2-1)
[2023-01-24] MEDS ORDERED: diazePAM 5 MG TABLET PO PRN (10:54)
[2023-01-24 10:55] LABS: TOT PROT 6.5 g/dl (6.4-8.2)
[2023-01-24] MEDS: diazePAM 5 MG TABLET PO SCH ×3 (10:57→22:48)
[2023-01-24] MEDS: THIAMINE HCL 100 MG TABLET (FP) PO SCH (22:47)
[2023-01-24] MEDS: MELATONIN 5 MG TABLETS PO SCH (22:47)
[2023-01-25] MEDS: diazePAM 5 MG TABLET PO SCH ×4 (05:45→22:55)
[2023-01-25] MEDS: PRENATAL VITAMINS W/ FOLIC ACID TABLET (FP) PO SCH (10:45)
[2023-01-25] MEDS: THIAMINE HCL 100 MG TABLET (FP) PO SCH (22:55)
[2023-01-25] MEDS: MELATONIN 5 MG TABLETS PO SCH (22:56)
[2023-01-26] MEDS ORDERED: diazePAM 5 MG TABLET PO SCH (06:00)
[2023-01-26 10:22] VITALS: BP 105/77; PULSE 93; RESP 18; TEMP 97.8
[2023-01-26] MEDS: PRENATAL VITAMINS W/ FOLIC ACID TABLET (FP) PO SCH (10:43)
[2023-01-27] MEDS ORDERED: diazePAM 5 MG TABLET PO SCH (06:00)
[2023-01-28] MEDS ORDERED: diazePAM 5 MG TABLET PO ONE (06:00)
== END 2023-01-26 12:02 | disposition home or self-care (01) | DRG 774 ==
LOC: YASAS 15:40 → Y6N 20:17
PROVIDERS: ADMIT Allergy & Immunology; ATTEND Allergy & Immunology
PROC: HZ2ZZZZ Detoxification Services for Substance Abuse Treatment (ICD-10-PCS; principal; 2023-01-23)
DX: F10.230 Alcohol dependence with withdrawal, uncomplicated (principal); F14.20 Cocaine dependence, uncomplicated; F12.20 Cannabis dependence, uncomplicated; F19.282 Other psychoactive substance dependence with psychoactive substance-induced sleep disorder; F19.280 Other psychoactive substance dependence with psychoactive substance-induced anxiety disorder; R63.4 Abnormal weight loss; Z68.21 Body mass index [BMI] 21.0-21.9, adult; R74.01 Elevation of levels of liver transaminase levels; Z87.891 Personal history of nicotine dependence; Z28.310 Unvaccinated for COVID-19; Z28.9 Immunization not carried out for unspecified reason; Z88.0 Allergy status to penicillin
CPT/HCPCS: 36415; 80053; 85027; 86780; 87635

== ENCOUNTER 2023-06-13 14:56 | Inpatient (IN) | payer OTHER ==
[2023-06-13] MEDS ORDERED: IBUPROFEN 400 MG TABLET (FP) PO PRN (18:44)
[2023-06-13] MEDS ORDERED: DICYCLOMINE HCL 10 MG CAPSULE PO PRN (18:44)
[2023-06-13] MEDS ORDERED: BISMUTH SUBSALICYLATE 524 MG/30 ML PO PRN (18:44)
[2023-06-13] MEDS ORDERED: BENZOCAINE/MENTHOL (CHLORASEPTIC ) LOZENGE MM PRN (18:44)
[2023-06-13] MEDS ORDERED: POLYETHYLENE GLYCOL (HEALTHYLAX) 3350 17 GM PACKET PO PRN (18:44)
[2023-06-13] MEDS ORDERED: NALOXONE HCL 0.4 MG/ML VIAL IM PRN (18:44)
[2023-06-13] MEDS ORDERED: ACETAMINOPHEN 325 MG TABLET (FP) PO PRN (18:44)
[2023-06-13] MEDS ORDERED: diazePAM 5 MG TABLET PO PRN (18:44)
[2023-06-13] MEDS ORDERED: IBUPROFEN 600 MG TABLET (FP) PO PRN (18:44)
[2023-06-13] MEDS ORDERED: LOPERAMIDE HCL 2 MG CAPSULE PO PRN (18:44)
[2023-06-13] MEDS ORDERED: MAG HYDROX/AL HYDROX/SIMETH 30 ML UNIT-DOSE CUP PO PRN (18:44)
[2023-06-13] MEDS ORDERED: MAGNESIUM HYDROX 2400MG/30ML ORAL SUSPENSION 30 ML CUP PO PRN (18:44)
[2023-06-13] MEDS ORDERED: BENZONATATE 200 MG CAPSULE PO PRN (18:44)
[2023-06-13] MEDS ORDERED: guaiFENesin 600 MG TABLET.ER (FP) PO PRN (18:44)
[2023-06-13] MEDS ORDERED: ONDANSETRON *ODT* 4 MG TABLET SL PRN (18:44)
[2023-06-13] MEDS ORDERED: NALOXONE HCL (KLOXXADO) 8 MG SPRAY NS PRN (18:44)
[2023-06-13] MEDS ORDERED: hydrOXYzine PAMOATE 25 MG CAPSULE (FP) PO PRN (18:44)
[2023-06-13] MEDS: THIAMINE HCL 100 MG TABLET (FP) PO SCH (22:24)
[2023-06-13] MEDS: MELATONIN 5 MG TABLETS PO SCH (22:24)
[2023-06-13] MEDS: diazePAM 5 MG TABLET PO SCH (22:25)
[2023-06-13] MEDS: METHOCARBAMOL 500 MG TABLET PO PRN (23:26)
[2023-06-14] MEDS: diazePAM 5 MG TABLET PO SCH ×4 (05:21→23:31)
[2023-06-14] MEDS: PRENATAL VITAMINS W/ FOLIC ACID TABLET (FP) PO SCH (10:03)
[2023-06-14 10:58] LABS: HEMATOCRIT 37.2 % (35.4-49); HEMOGLOBIN 12.6 GM/dL (11.7-16.9); MCH 33.7 pg (25.7-33.7); MCHC 33.8 g/dl (32.0-35.9); MEAN CELL VOLUME 99.7 fl (80-96); MEAN PLT VOLUME 6.9 fl (7.5-11.1); PLATELET COUNT 135 10^3/uL (134-434); RBC 3.73 M/mm3 (4.00-5.60); WHITE BLOOD COUNT 6.2 K/mm3 (4.0-10.0)
[2023-06-14 11:58] LABS: CHLORIDE 102 mmol/L (98-107); POTASSIUM 3.7 mmol/L (3.5-5.1); SODIUM 138 mmol/L (136-145)
[2023-06-14 12:01] LABS: CALCIUM 8.5 mg/dL (8.5-10.1)
[2023-06-14 12:02] LABS: ALBUMIN 3.7 g/dl (3.4-5.0); ANION GAP 8 mmol/L (4-13); BLOOD UREA NITROGEN 7.2 mg/dL (7-18); CO2 28 mmol/L (21-32); GLUCOSE,RANDOM 115 mg/dL (74-106)
[2023-06-14 12:05] LABS: CREATININE 0.8 mg/dL (0.55-1.3); SGOT/AST 71 U/L (15-37)
[2023-06-14 12:06] LABS: BILIRUBIN,TOTAL 0.8 mg/dL (0.2-1); TOT PROT 6.9 g/dl (6.4-8.2)
[2023-06-14 12:08] LABS: ALK PHOS 75 U/L (45-117)
[2023-06-14 12:24] LABS: SGPT/ALT 52 U/L (13-61)
[2023-06-14] MEDS: diazePAM 5 MG TABLET PO ONE ×2 (23:28→23:29)
[2023-06-14] MEDS: THIAMINE HCL 100 MG TABLET (FP) PO SCH (23:29)
[2023-06-14] MEDS: MELATONIN 5 MG TABLETS PO SCH (23:29)
[2023-06-15] MEDS: diazePAM 5 MG TABLET PO SCH ×3 (06:23→23:03)
[2023-06-15] MEDS: PRENATAL VITAMINS W/ FOLIC ACID TABLET (FP) PO SCH (10:32)
[2023-06-15] MEDS: THIAMINE HCL 100 MG TABLET (FP) PO SCH (23:02)
[2023-06-15] MEDS: MELATONIN 5 MG TABLETS PO SCH (23:03)
[2023-06-16] MEDS: diazePAM 5 MG TABLET PO SCH ×2 (07:00→18:04)
[2023-06-16] MEDS: PRENATAL VITAMINS W/ FOLIC ACID TABLET (FP) PO SCH (10:40)
[2023-06-16 21:31] VITALS: BP 118/76; PULSE 83; RESP 18; TEMP 97.9
[2023-06-16] MEDS: THIAMINE HCL 100 MG TABLET (FP) PO SCH (22:42)
[2023-06-16] MEDS: METHOCARBAMOL 500 MG TABLET PO PRN (22:43)
[2023-06-16] MEDS: MELATONIN 5 MG TABLETS PO SCH (22:43)
[2023-06-17] MEDS: diazePAM 5 MG TABLET PO ONE (06:01)
[2023-06-17] MEDS: PRENATAL VITAMINS W/ FOLIC ACID TABLET (FP) PO SCH (09:25)
== END 2023-06-17 10:09 | disposition home or self-care (01) | DRG 774 ==
LOC: YASAS 14:56 → Y6N 19:05
PROVIDERS: ADMIT Allergy & Immunology; ATTEND Surgery
PROC: HZ2ZZZZ Detoxification Services for Substance Abuse Treatment (ICD-10-PCS; principal; 2023-06-13)
DX: F10.230 Alcohol dependence with withdrawal, uncomplicated (principal); F14.20 Cocaine dependence, uncomplicated; F12.20 Cannabis dependence, uncomplicated; F19.282 Other psychoactive substance dependence with psychoactive substance-induced sleep disorder; U07.1 COVID-19; R76.11 Nonspecific reaction to tuberculin skin test without active tuberculosis; Z87.891 Personal history of nicotine dependence; Z91.51 Personal history of suicidal behavior; Z62.810 Personal history of physical and sexual abuse in childhood; Z88.0 Allergy status to penicillin; Z28.310 Unvaccinated for COVID-19; Z28.9 Immunization not carried out for unspecified reason
CPT/HCPCS: 36415; 80053; 80307; 85027; 86780; 87635; 93005; 93010

== ENCOUNTER 2024-04-09 17:31 | Inpatient (IN) | payer OTHER ==
[2024-04-09 17:53] VITALS: BMI 21.4
[2024-04-09] MEDS ORDERED: MAGNESIUM HYDROX 2400MG/30ML ORAL SUSPENSION 30 ML CUP PO PRN (18:43)
[2024-04-09] MEDS ORDERED: guaiFENesin 600 MG TABLET.ER (FP) PO PRN (18:43)
[2024-04-09] MEDS ORDERED: ACETAMINOPHEN 325 MG TABLET (FP) PO PRN (18:43)
[2024-04-09] MEDS ORDERED: IBUPROFEN 400 MG TABLET (FP) PO PRN (18:43)
[2024-04-09] MEDS ORDERED: LOPERAMIDE HCL 2 MG CAPSULE PO PRN (18:43)
[2024-04-09] MEDS ORDERED: hydrOXYzine PAMOATE 25 MG CAPSULE (FP) PO PRN (18:43)
[2024-04-09] MEDS ORDERED: DICYCLOMINE HCL 10 MG CAPSULE PO PRN (18:43)
[2024-04-09] MEDS ORDERED: ONDANSETRON *ODT* 4 MG TABLET SL PRN (18:43)
[2024-04-09] MEDS ORDERED: BENZOCAINE/MENTHOL (CHLORASEPTIC ) LOZENGE MM PRN (18:43)
[2024-04-09] MEDS ORDERED: MAG HYDROX/AL HYDROX/SIMETH 30 ML UNIT-DOSE CUP PO PRN (18:43)
[2024-04-09] MEDS ORDERED: BISMUTH SUBSALICYLATE 524 MG/30 ML PO PRN (18:43)
[2024-04-09] MEDS ORDERED: IBUPROFEN 600 MG TABLET (FP) PO PRN (18:43)
[2024-04-09] MEDS ORDERED: POLYETHYLENE GLYCOL (HEALTHYLAX) 3350 17 GM PACKET PO PRN (18:43)
[2024-04-09] MEDS ORDERED: BENZONATATE 200 MG CAPSULE PO PRN (18:43)
[2024-04-09] MEDS ORDERED: diazePAM 5 MG TABLET ONE (19:54)
[2024-04-09] MEDS: diazePAM 5 MG TABLET PO ONE (19:56)
[2024-04-09] MEDS: MELATONIN 5 MG TABLETS PO SCH (22:25)
[2024-04-09] MEDS: THIAMINE 100 MG TABLET PO SCH (22:26)
[2024-04-09] MEDS: diazePAM 5 MG TABLET PO SCH (23:36)
[2024-04-10 09:23] LABS: POTASSIUM 4.1 mmol/L (3.5-5.1)
[2024-04-10 09:28] LABS: CALCIUM 9.2 mg/dL (8.5-10.1)
[2024-04-10 09:29] LABS: ALBUMIN 3.8 g/dl (3.4-5.0); BLOOD UREA NITROGEN 9.5 mg/dL (7-18)
[2024-04-10 09:32] LABS: CREATININE 0.8 mg/dL (0.55-1.3)
[2024-04-10 09:33] LABS: BILIRUBIN,TOTAL 0.6 mg/dL (0.2-1); TOT PROT 6.4 g/dl (6.4-8.2)
[2024-04-10 09:47] LABS: HEMATOCRIT 37.9 % (35.4-49); HEMOGLOBIN 12.8 GM/dL (11.7-16.9); MCH 33.4 pg (25.7-33.7); MCHC 33.6 g/dl (32.0-35.9); MEAN CELL VOLUME 99.4 fl (80-96); MEAN PLT VOLUME 6.5 fl (7.5-11.1); PLATELET COUNT 152 10^3/uL (134-434); RBC 3.82 M/mm3 (4.00-5.60); RDW 13.7 % (11.9-15.9); WHITE BLOOD COUNT 9.5 K/mm3 (4.0-10.0)
[2024-04-10] MEDS: PRENATAL VITAMINS W/ FOLIC ACID TABLET (FP) PO SCH (10:28)
[2024-04-10] MEDS: METHOCARBAMOL 500 MG TABLET PO PRN (22:34)
[2024-04-11] MEDS: diazePAM 5 MG TABLET PO SCH (06:09)
[2024-04-11] MEDS: diazePAM 5 MG TABLET PO PRN (09:49)
[2024-04-11] MEDS ORDERED: FLU VACCINE (FLULAVAL) PF 45 MCG/0.5 ML SYRINGE 2024-2025 IM ONE (14:08)
[2024-04-12] MEDS: diazePAM 5 MG TABLET PO SCH (05:45)
[2024-04-12] MEDS: FLU VACCINE (FLULAVAL) PF 45 MCG/0.5 ML SYRINGE 2024-2025 IM ONE (12:07)
[2024-04-12 13:16] VITALS: BP 107/68; PULSE 90; RESP 18; TEMP 98.2
[2024-04-12 14:17] LABS: HIV INTERPRETATION NEGATIVE (NEGATIVE)
[2024-04-13] MEDS ORDERED: diazePAM 5 MG TABLET PO ONE (06:00)
== END 2024-04-12 14:07 | disposition home or self-care (01) | DRG 774 ==
LOC: YASAS 17:31 → Y6N 19:57
PROVIDERS: ADMIT Allergy & Immunology; ATTEND Allergy & Immunology
PROC: HZ2ZZZZ Detoxification Services for Substance Abuse Treatment (ICD-10-PCS; principal; 2024-04-09)
DX: F10.230 Alcohol dependence with withdrawal, uncomplicated (principal); F14.20 Cocaine dependence, uncomplicated; F16.20 Hallucinogen dependence, uncomplicated; F12.20 Cannabis dependence, uncomplicated; F17.210 Nicotine dependence, cigarettes, uncomplicated; F41.9 Anxiety disorder, unspecified; F32.A Depression, unspecified; R76.11 Nonspecific reaction to tuberculin skin test without active tuberculosis
CPT/HCPCS: 36415; 80053; 80305; 80307; 85027; 86780; 87389; 90656; 93005; 93010; G0008

== ENCOUNTER 2024-08-02 15:24 | Inpatient (IN) | payer OTHER ==
[2024-08-02 16:02] VITALS: BMI 21.5
[2024-08-02] MEDS ORDERED: MAG HYDROX/AL HYDROX/SIMETH 30 ML UNIT-DOSE CUP PO PRN (16:49)
[2024-08-02] MEDS ORDERED: ONDANSETRON *ODT* 4 MG TABLET SL PRN (16:49)
[2024-08-02] MEDS ORDERED: diazePAM 5 MG TABLET PO PRN (16:49)
[2024-08-02] MEDS ORDERED: BISMUTH SUBSALICYLATE 524 MG/30 ML PO PRN (16:49)
[2024-08-02] MEDS ORDERED: IBUPROFEN 400 MG TABLET (FP) PO PRN (16:49)
[2024-08-02] MEDS ORDERED: IBUPROFEN 600 MG TABLET (FP) PO PRN (16:49)
[2024-08-02] MEDS ORDERED: ACETAMINOPHEN 325 MG TABLET (FP) PO PRN (16:49)
[2024-08-02] MEDS ORDERED: METHOCARBAMOL 500 MG TABLET PO PRN (16:49)
[2024-08-02] MEDS ORDERED: guaiFENesin 600 MG TABLET.ER (FP) PO PRN (16:49)
[2024-08-02] MEDS ORDERED: hydrOXYzine PAMOATE 25 MG CAPSULE (FP) PO PRN (16:49)
[2024-08-02] MEDS ORDERED: MAGNESIUM HYDROX 2400MG/30ML ORAL SUSPENSION 30 ML CUP PO PRN (16:49)
[2024-08-02] MEDS ORDERED: BENZONATATE 200 MG CAPSULE PO PRN (16:49)
[2024-08-02] MEDS ORDERED: BENZOCAINE/MENTHOL (CHLORASEPTIC ) LOZENGE MM PRN (16:49)
[2024-08-02] MEDS ORDERED: LOPERAMIDE HCL 2 MG CAPSULE PO PRN (16:49)
[2024-08-02] MEDS ORDERED: NALOXONE (NARCAN) HCL 4 MG/0.1 ML SPRAY NS PRN (16:49)
[2024-08-02] MEDS ORDERED: POLYETHYLENE GLYCOL (HEALTHYLAX) 3350 17 GM PACKET PO PRN (16:49)
[2024-08-02] MEDS ORDERED: DICYCLOMINE HCL 10 MG CAPSULE PO PRN (16:49)
[2024-08-02] MEDS ORDERED: levETIRAcetam 500 MG TABLET (FP) PO ONE (17:18)
[2024-08-02] MEDS: levETIRAcetam 500 MG TABLET (FP) PO ONE (17:22)
[2024-08-02] MEDS: MELATONIN 5 MG TABLETS PO SCH (22:14)
[2024-08-02] MEDS: THIAMINE 100 MG TABLET PO SCH (22:14)
[2024-08-02] MEDS: diazePAM 5 MG TABLET PO SCH (22:15)
[2024-08-03] MEDS: PRENATAL VITAMINS W/ FOLIC ACID TABLET (FP) PO SCH (10:07)
[2024-08-03] MEDS: levETIRAcetam 500 MG TABLET (FP) PO SCH (10:07)
[2024-08-03 11:06] LABS: HEMATOCRIT 38.3 % (35.4-49); HEMOGLOBIN 12.9 GM/dL (11.7-16.9); MCH 33.3 pg (25.7-33.7); MCHC 33.7 g/dl (32.0-35.9); MEAN CELL VOLUME 98.7 fl (80-96); MEAN PLT VOLUME 7.2 fl (7.5-11.1); PLATELET COUNT 138 10^3/uL (134-434); RBC 3.88 M/mm3 (4.00-5.60); RDW 13.7 % (11.9-15.9); WHITE BLOOD COUNT 6.7 K/mm3 (4.0-10.0)
[2024-08-03 11:48] LABS: CHLORIDE 105 mmol/L (98-107); POTASSIUM 4.1 mmol/L (3.5-5.1); SODIUM 141 mmol/L (136-145)
[2024-08-03 11:58] LABS: CALCIUM 9.1 mg/dL (8.5-10.1)
[2024-08-03 11:59] LABS: ALBUMIN 3.6 g/dl (3.4-5.0)
[2024-08-03 12:00] LABS: ANION GAP 7 mmol/L (4-13); BLOOD UREA NITROGEN 9.2 mg/dL (7-18); CO2 29 mmol/L (21-32); GLUCOSE,RANDOM 93 mg/dL (74-106)
[2024-08-03 12:01] LABS: SGOT/AST 32 U/L (15-37); SGPT/ALT 36 U/L (13-61)
[2024-08-03 12:02] LABS: CREATININE 0.8 mg/dL (0.55-1.3)
[2024-08-03 12:03] LABS: ALK PHOS 55 U/L (45-117); BILIRUBIN,TOTAL 0.7 mg/dL (0.2-1); TOT PROT 6.1 g/dl (6.4-8.2)
[2024-08-03 12:16] LABS: HIV INTERPRETATION NEGATIVE (NEGATIVE)
[2024-08-04] MEDS: diazePAM 5 MG TABLET PO SCH (05:47)
[2024-08-05] MEDS: diazePAM 5 MG TABLET PO SCH (05:17)
[2024-08-06] MEDS: diazePAM 5 MG TABLET PO ONE (05:34)
[2024-08-06 06:06] VITALS: RESP 16
[2024-08-06 08:45] VITALS: BP 105/77; PULSE 78; TEMP 97.7
== END 2024-08-06 09:08 | disposition home or self-care (01) | DRG 775 ==
LOC: YASAS 15:24 → Y3N 17:42
PROVIDERS: ADMIT Allergy & Immunology; ATTEND Allergy & Immunology
PROC: HZ2ZZZZ Detoxification Services for Substance Abuse Treatment (ICD-10-PCS; principal; 2024-08-02)
DX: F10.230 Alcohol dependence with withdrawal, uncomplicated (principal); F32.A Depression, unspecified; F41.9 Anxiety disorder, unspecified; R63.4 Abnormal weight loss; Z68.21 Body mass index [BMI] 21.0-21.9, adult; Z86.19 Personal history of other infectious and parasitic diseases; Z86.16 Personal history of COVID-19; Z87.891 Personal history of nicotine dependence
CPT/HCPCS: 36415; 80053; 80305; 80307; 85027; 86780; 87389; 93005; 93010